=== PATIENT | female | born 1975 ===

== ENCOUNTER 2024-02-04 17:09 | Emergency (ER) | payer OTHER, SELFPAY ==
--- NOTE | ~2024-02-04 | US_ITS ---
EXAMINATION: US ABDOMEN LIMITED CLINICAL INFORMATION: Epigastric pain. COMPARISON: None available. TECHNIQUE: Real-time imaging of the right upper quadrant abdominal viscera. FINDINGS: PANCREAS: Normal. LIVER: Multiple simple appearing cysts largest in the left lobe measuring up to 2 cm. The liver is normal in size. The liver contour is normal. Parenchymal echogenicity is normal. There is no intrahepatic biliary duct dilatation seen. GALLBLADDER: Normal. The gallbladder is physiologically distended without evidence of stones, sludge, polyps, wall thickening or pericholecystic fluid. COMMON BILE DUCT: Normal in caliber measuring 0.3 cm in diameter. RIGHT KIDNEY: Normal. No hydronephrosis. No renal calculi or focal parenchymal lesions. The kidney measures 9.8 cm in maximum dimension. FREE FLUID: None. US/US abdomen limited IMPRESSION: No acute sonographic abnormalities to explain the patient's symptoms. Electronically signed by: Alia Soares MD 02/04/2024 07:30 PM EDT
--- NOTE | 2024-02-04 17:45 | ED_ITS ---
HPI - Abdominal Pain General Chief Complaint: Abdominal Pain Stated Complaint: abd pain Time Seen by Provider: 02/04/24 22:21 Source: patient Mode of arrival: ambulatory Limitations: no limitations History of Present Illness ED Provider: Dr. Helena Terrell HPI narrative: Patient comes to the emergency room complaining of 4-5 months of right upper quadrant pain. Patient states that it feels like a lot of pressure in her abdomen. Denies sharp pains, states that the pain is not related to p.o. intake. Patient denies hematuria or dysuria. Patient denies nausea vomiting or diarrhea. Denies any previous abdominal surgeries. - Related Data Previous Rx's ?Medication ?Instructions ?Recorded acetaminophen 500 mg capsule 500 mg PO Q6H PRN fever or pain 02/04/24 #20 caps hyoscyamine sulfate 0.125 mg tablet 0.125 mg PO QID PRN dyspepsia #10 02/04/24 tabs Allergies Allergy/AdvReac Type Severity Reaction Status Date / Time No Known Allergies Allergy Verified 02/04/24 17:50 Review of Systems Review of Systems Constitutional : No Weight loss, No Fever, No Chills, No Night Sweats, No Fatigue, No Malaise ENT/Mouth : No Hearing loss, No Ear Pain, No Nasal Congestion, No Sinus Pain, No Hoarseness, No sore throat, No Rhinorrhea, No Swallowing Difficulty Eyes: No Eye Pain, No Swelling, No Redness, No Foreign Body, No Discharge, No Vision Changes Cardiovascular : No Chest Pain, No SOB, No Dyspnea on Exertion, No Orthopnea, No Edema, No Palpitations Respiratory : No Cough, No Sputum, No Wheezing, No Smoke Exposure, No Dyspnea Gastrointestinal : No Nausea, No Vomiting, No Diarrhea, No Constipation, complaining of chronic right upper quadrant pain that started approximately 4-5 months ago. Genitourinary : no irregular bleeding, No Dysuria, No Urinary Frequency, No Hematuria, No Urinary Incontinence, No Urgency, No Flank Pain, No Urinary Flow Changes, No Hesitancy Musculoskeletal : No joint pain, No Myalgias, No Joint Swelling Skin : No Skin Lesions, No rash Neuro : No Weakness, No Numbness, No Paresthesias, No Loss of Consciousness, No Dizziness, No Headache Psych : No Anxiety/Panic, No Depression, No SI/HI/AH/VH, No Social Issues, Heme/Lymph: No Bruising, No Bleeding,No Lymphadenopathy Endocrine : No Polyuria, No Polydipsia, No Temperature Intolerance [facility] Social History Social History Advance Directives: No Advance Directives Information Provided: No Do you have a plan to hurt others: No Plan Physical Exam ED Vital Signs: Vital Signs - 24 hr 02/04/24 17:46 02/04/24 20:48 Temperature 98.9 F 98.1 F Pulse Rate 73 61 Respiratory Rate 20 16 Blood Pressure 118/54 L 105/62 Pulse Oximetry 100 100 Oxygen Delivery Method Room Air Room Air BMI result Body Mass Index 26.6 Const Other: Appearance: Alert. Oriented X3. No acute distress. Eyes: Pupils equal, round and reactive to light. ENT: Pharynx normal. Neck: Normal inspection. Neck supple. No lymph nodes noted. No crepitus CVS: Normal heart rate and rhythm. Pulses normal. Normal S1 and S2 Respiratory: No respiratory distress. Breath sounds normal. No Wheezing. No rales Abdomen: Soft , some tenderness to palpation over the right upper quadrant, negative Segura sign, no rebound or guarding Skin: Skin warm and dry. Normal skin color. Normal skin turgor. Extremities: No lower extremity edema. No Lacerations. No Rash Neuro: Oriented X 3. No motor deficit. No sensory deficit. Moving all extremities. No slurred speech. CN 2 through 12 grossly intact Psych: calm, cooperative, normal affect Course Course Course Narrative: This is an RME: Additional HPI, ROS, PE not included below will be deferred to primary provider. RME assessment and note performed by: Kayla Saldana PA-C This is a 66-picl-akl-female, with a hx of asthma, who presents to the ER with a complaint of abdominal pain x 4-5 months, progressively worsening. No nausea, vomiting, or diarrhea. She has no PCP. Plan: labs, US, UA, further ER eval needed Medical Decision Making Medical Decision Making MDM Narrative: My interpretation of labs, normal hematology, normal chemistry, normal LFTs, normal troponin, normal lipase, hCG negative -ultrasound of the abdomen shows multiple cysts in the left lobe measuring up to 2 cm. No intrahepatic biliary duct dilation. Gallbladder is physiologically distended without evidence of stones sludge or polyps. Current bile duct is normal in caliber. Her kidney within normal limits. -patient states that she does not have a PCP, recently arrived from [place] 2 weeks ago. -discussed with the patient that we will refer her to Gastroenterology. Besides, patient is 48 years old, she is due for a routine colonoscopy Differential Diagnosis Differential Diagnoses: The differential diagnosis associated with the presentation includes (Cholecystitis, pancreatitis, functional abdominal pain) Lab Data MDM Lab Attestation statement: I reviewed the patient's lab results. 02/04/24 18:03 02/04/24 18:03 Labs: Lab Results 02/04/24 Range/Units 18:03 WBC 6.3 (4.8-10.8) X10*3/uL RBC 3.99 L (4.20-5.50) X10*6/uL Hgb 12.0 (12.0-16.0) g/dl Hct 35.7 L (37.0-47.0) % MCV 89.5 (80.0-98.0) fL MCH 30.1 (27.0-33.0) pg MCHC 33.6 (31.0-35.0) g/dl RDW 13.8 (11.0-16.0) % Plt Count 344 (160-400) X10*3/uL MPV 9.5 (9.4-12.3) fL Immature Gran % (Auto) 0.5 H (0.0-0.4) % Neut % (Auto) 58.1 (45-73) % Lymph % (Auto) 31.5 (20-40) % [place] % (Auto) 8.4 (2-11) % Eos % (Auto) 1.0 (0-4) % Baso % (Auto) 0.5 (0-2) % Lymph # (Auto) 2.0 (1.2-4.9) X10*3/uL [place] # (Auto) 0.5 (0.1-1.2) X10*3/uL Eos # (Auto) 0.1 (0.0-0.4) X10*3/uL Baso # (Auto) 0.0 (0.0-0.2) X10*3/uL Abs Immat Gran (auto) 0.03 (0.00-0.03) X10*3/uL Absolute Neuts (auto) 3.7 (2.0-8.3) x10*3/uL Absolute Nucleated RBC 0.000 (0.0-0.012) X10*3/uL Nucleated RBC % (auto) 0.0 (0.0-0.2) /100WBC Hold Purple Top SEE NOTE Hold Blue Top SEE NOTE Sodium 142 (135-145) mmol/L Potassium 3.7 (3.3-5.1) mmol/L Chloride 111 H (96-108) mmol/L Carbon Dioxide 23 (22-29) mmol/L Anion Gap 12 (12-20) BUN 16 (9-16) mg/dL Creatinine 0.80 (0.5-1.4) mg/dL Estim Creat Clear Calc 87.0 Estimated GFR > 60 Random Glucose 96 (60-115) mg/dL Calcium 9.2 (8.4-10.2) mg/dL Total Bilirubin 0.4 (0.0-1.0) mg/dL Direct Bilirubin 0.1 (0.0-0.5) mg/dL AST 19 (5-31) U/L ALT 15 (0-31) U/L Alkaline Phosphatase 63 (39-117) U/L Troponin I High Sens < 2.7 (<3.5-17.0) ng/L Total Protein 7.1 (6.5-8.0) g/dL Albumin 4.2 (3.5-5.0) g/dL Lipase 34 (8-78) U/L Beta HCG, Quant < 2 mIU/mL Independent Interpretation I performed an independent interpretation of an: Ultrasound Radiology Impression Discussion of test interpretation with radiology: I have reviewed the radiologist's reading. Radiologist Impression: PANCREAS: Normal. LIVER: Multiple simple appearing cysts largest in the left lobe measuring up to 2 cm. The liver is normal in size. The liver contour is normal. Parenchymal echogenicity is normal. There is no intrahepatic biliary duct dilatation seen. GALLBLADDER: Normal. The gallbladder is physiologically distended without evidence of stones, sludge, polyps, wall thickening or pericholecystic fluid. COMMON BILE DUCT: Normal in caliber measuring 0.3 cm in diameter. RIGHT KIDNEY: Normal. No hydronephrosis. No renal calculi or focal parenchymal lesions. The kidney measures 9.8 cm in maximum dimension. FREE FLUID: None. US/US abdomen limited IMPRESSION: No acute sonographic abnormalities to explain the patient's symptoms. Discharge Plan Discharge Clinical Impression: Chronic abdominal pain Patient Disposition: Home, Self-Care Instructions: Chronic Abdominal Pain (ED) Additional Instructions: Please follow-up with your primary care physician tomorrow. If you have any worsening or new symptoms, please return to the emergency room or call 911 Prescriptions: New acetaminophen 500 mg capsule 500 mg PO Q6H PRN (Reason: fever or pain) Qty: 20 0RF hyoscyamine sulfate 0.125 mg tablet 0.125 mg PO QID PRN (Reason: dyspepsia) Qty: 10 0RF Referrals: Raiza Beaver MD [Physician] - 02/05/24 Print Language: Frisian
[2024-02-04 17:46] VITALS: BP 118/54; PULSE 73; RESP 20; TEMP 37.2; O2SAT 100; BMI 26.6
--- NOTE | 2024-02-04 17:51 | ECG_ITS ---
Test Reason : epigastric pain Blood Pressure : / mmHG Vent. Rate : 065 BPM Atrial Rate : 065 BPM P-R Int : 136 ms QRS Dur : 076 ms QT Int : 404 ms P-R-T Axes : 048 034 039 degrees QTc Int : 420 ms Normal sinus rhythm Normal ECG No previous ECGs available Referred By: Kayla Saldana Electronically Signed By:MIKA BA
[2024-02-04 18:09] LABS: MANUAL DIFF FLAG NO
[2024-02-04 18:11] LABS: Basophils Percent Auto 0.5 % (0-2); Eosinophils Absolute Auto 0.1 X10*3/uL (0.0-0.4); Hematocrit 35.7 % (37.0-47.0); Imm Gran Abs Auto 0.03 X10*3/uL (0.00-0.03); Imm Gran Pct Auto 0.5 % (0.0-0.4); Lymphocytes Percent Auto 31.5 % (20-40); Mean Corpuscular HGB Conc 33.6 g/dl (31.0-35.0); Mean Corpuscular Hemoglobin 30.1 pg (27.0-33.0); Mean Corpuscular Volume 89.5 fL (80.0-98.0); Mean Platelet Volume 9.5 fL (9.4-12.3); Monocytes Absolute Auto 0.5 X10*3/uL (0.1-1.2); Monocytes Percent Auto 8.4 % (2-11); Neutrophils Absolute Auto 3.7 x10*3/uL (2.0-8.3); Neutrophils Percent Auto 58.1 % (45-73); Platelet Count 344 X10*3/uL (160-400); Red Blood Count 3.99 X10*6/uL (4.20-5.50); Red Cell Distribution Width 13.8 % (11.0-16.0); White Blood Count 6.3 X10*3/uL (4.8-10.8)
[2024-02-04 18:30] LABS: Alanine Aminotransferase 15 U/L (0-31); Albumin Level 4.2 g/dL (3.5-5.0); Alkaline Phosphatase 63 U/L (39-117); Anion Gap 12 (12-20); Aspartate Amino Transferase 19 U/L (5-31); Bilirubin Direct 0.1 mg/dL (0.0-0.5); Bilirubin Total 0.4 mg/dL (0.0-1.0); Blood Urea Nitrogen 16 mg/dL (9-16); Calcium 9.2 mg/dL (8.4-10.2); Carbon Dioxide 23 mmol/L (22-29); Chloride 111 mmol/L (96-108); Estimated Glomerular Filt Rate > 60; Glucose Random 96 mg/dL (60-115); Lipase 34 U/L (8-78); Potassium 3.7 mmol/L (3.3-5.1); Sodium 142 mmol/L (135-145); Total Protein 7.1 g/dL (6.5-8.0)
[2024-02-04 18:31] LABS: HCG Quantitative < 2 mIU/mL
[2024-02-04 18:35] LABS: Troponin-I High Sensitivity < 2.7 ng/L (<3.5-17.0)
[2024-02-04 20:48] VITALS: BP 105/62; PULSE 61; RESP 16; TEMP 36.7; O2SAT 100
--- NOTE | 2024-02-04 20:50 | PC.NURSE ---
pt a&ox3, c/o 01/30 rt flank pain, vss, labs previously drawn, pt awaiting to be seen by provider
[2024-02-04 22:39] VITALS: BP 106/68; PULSE 58; RESP 16; TEMP 36.4; O2SAT 100
[2024-02-04 23:09] VITALS: BP 106/68; PULSE 58; RESP 16; TEMP 36.4; O2SAT 100
== END 2024-02-04 23:09 | disposition home or self-care (01) ==
PROVIDERS: Physician Assistant Medical; Emergency Provider Emergency Medicine
DX: R10.11 Right upper quadrant pain (principal); R10.13 Epigastric pain; Z79.899 Other long term (current) drug therapy
CPT/HCPCS: 36415; 76705; 80048; 80076; 83690; 84484; 84702; 85025; 93005; 99284

== ENCOUNTER → 2024-02-04 17:51 | Outpatient (BNV) | payer OTHER, SELFPAY | PROVIDERS: Emergency Provider Emergency Medicine; Visit Provider Internal Medicine | DX: R10.13 Epigastric pain (principal) | CPT/HCPCS: 93010 ==

== ENCOUNTER 2024-03-31 12:37 | Outpatient (AMB) | payer OTHER, SELFPAY ==
--- NOTE | 2024-03-31 12:48 | MHC.OFFVIS ---
Vital Signs 03/31/24 12:51 Height 5 ft 6 in Weight 154 lb 5.177 oz BMI 24.9 BP 109/58 L Blood Pressure Location Lt brachial Position Sitting Pulse 80 Intake Visit Reasons: abdominal pain Intake Note: Griffin presents in the office as a new patient for abdominal pains. CC: RUQ pains, no irregular bowel movements, sometimes acid reflux. Product Delivery Specialist Required: Yes Product Delivery Specialist Name: [id number] [place] Allergies No Known Allergies Allergy (Verified 03/31/24 12:55) HPI Comments Details: 48 y.o F with PMH of who is here for chronic abd pain. Reports 4-5 months of RUQ pain which is assoc with loss of appetite without any N,V,D. Pain comes and goes. Not present all the time roughly there 50% of the time. Pain is there when she wakes up but aggravated by eating. Gets better with taking tylenol or motrin. BMs are soft and the pain is unchanged with defecation. Was seen in ER in Jan for the same LFTs and US normal. No fam hx of liver disease Limited etOH. Smokes 3-5 cigarettes. Never had colo. Review of Systems Const All systems reviewed & are unremarkable except as noted in HPI and below Physical Exam Vital Signs: Last Vital Signs Pulse 80 03/31/24 12:51 BP 109/58 L 03/31/24 12:51 BMI result Body Mass Index 24.9 No apparent distress Nonicteric Abdomen soft, nondistended, with pin point localized tenderness 2 cm above umbilicsus. Alert and oriented x3, normal gait GI Abdomen image: 1. pinpoint reproducible tenderness Office Procedures Injection Trigger Point Multi Site was marked and prepped with alcohol wipe. While lightly pinching the skin, a 25g 1.5inch needle was inserted perpendicularly. 2ml of 1% lidocaine was injected at the site to confirm appropriate location and for local anesthesia. This was then followed with 1ml of Triamcinolone (40mg). Minimal bleeding was noted at the end of procedure. A band aid was applied. 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 Other ddx include biliary diskinesia, SOD, celiac. Low suspicion for PUD givenlocation and no relation to food. Plan: - Trigger point inj today - Can repeat this as needed, if this does resolve the pain - HIDA and labs ordered as below - Pt also requests chronic hep screening which as been ordered as per CDC guidance - Has never had CRC screening. [place] to be booked on elective basis. PEG prep given and instructions reviewed. Can add EGD if develops bowel habits changes or pos celiac serology. Follow up after colo Orders: Orders NM hepatobiliary w pharm 03/31/24 R10.11 - Right upper quadrant pain, G89.29 - Other chronic pain Transglutaminase IgA 03/31/24 R10.11 - Right upper quadrant pain, G89.29 - Other chronic pain Hepatitis A IgG 03/31/24 Z11.59 - Encounter for screening for other viral diseases Hepatitis B Core Antibody 03/31/24 Z11.59 - Encounter for screening for other viral diseases Hepatitis B Surface Antigen 03/31/24 Z11.59 - Encounter for screening for other viral diseases Hepatitis C Antibody 03/31/24 Z11.59 - Encounter for screening for other viral diseases TSH reflex Free T4 03/31/24 R10.11 - Right upper quadrant pain, G89.29 - Other chronic pain Immunoglobulin A 03/31/24 R10.11 - Right upper quadrant pain, G89.29 - Other chronic pain Hepatitis B Surface Antibody 03/31/24 Z11.59 - Encounter for screening for other viral diseases Medications: New peg 3350-electrolytes 236-22.74-6.74 -5.86 gram (Golytely) as per split prep instructions, until fecal effluent is clear 240 mL PO Q10M 4,000 mL 0RF colonoscopy Coding Level of Care Code New Pt Level 4 (52836) Diagnoses 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
[2024-03-31 12:51] VITALS: BP 109/58; PULSE 80; BMI 24.9
== END 2024-03-31 14:48 | disposition home or self-care (01) ==
PROVIDERS: Visit Provider Internal Medicine
DX: R10.11 Right upper quadrant pain (principal); G58.8 Other specified mononeuropathies; Z11.59 Encounter for screening for other viral diseases
CPT/HCPCS: 99204

== ENCOUNTER 2024-03-31 12:37 | Outpatient (REF) | payer OTHER, SELFPAY ==
[2024-03-31 15:20] LABS: TSH reflex Free T4 1.71 uIU/mL (0.32-4.0)
[2024-04-01 08:27] LABS: HBc Num1 0.04 S/CO (0.00-0.79); HBsAGNum1 0.45 S/CO (0.00-0.99); Hepatitis A Antibody IgG Nonreactive (Nonreactive); Hepatitis B Core Antibody Nonreactive (Nonreactive); Hepatitis B Surface Antigen Negative (Negative); ~HepC Num1 0.09 S/CO (0.00-0.79); ~Hepatitis A Antibody IgG 0.23 S/CO (0.00-0.99); ~Hepatitis B Surface Antibody NONREACTIVE (Nonreactive); ~Hepatitis C Antibody Nonreactive (Nonreactive)
[2024-04-01 10:48] LABS: Immunoglobulin A 212 mg/dL (47-310)
[2024-04-01 20:39] LABS: Transglutaminase IgA <1.0 U/mL
--- OUTSIDE RECORDS SUMMARY | 2024-04-02 16:01 | XMS_ITS | Continuity of Care Document ---
Author Organization [facility] Address [address] [place] [address] Phone Care Team Providers Care Sales/Marketing Name Role Phone Marlene Tim Unavailable Unava ilable Allergies, Adverse Reactions, Alerts Substance Reaction Status Criticality No Known Allergies Active No Inform ation Procedures Procedure Date OFFICE/OUTPATIENT VISIT, [facility] Advance Directives Directive Yes / No Effective Date File Name No Information Encounters Encounter Description Practice Location Reason(s) For Visit Diagnoses Date Provider Providers Copied on Encounter OFFICE/OUTPAT IENT VISIT, [facility], [address] [place], , [id number], [place] tel:[phone] [facility] [place] [facility] Sebaceous cyst Nick Rosario. [address] [facility], [place], , [id number], [place]. tel:[phone] Family History Family Member Type Diagnosis Age [...] Mental Status Date Cognitive Assessment Orientation - [place] ed to time, place, person, situation. Patient Care Teams Name Effective Dates (start - stop) Status Members No Information
== END 2024-03-31 12:38 | disposition home or self-care (01) ==
LOC: HO.LAB 12:37
PROVIDERS: Visit Provider Internal Medicine
DX: Z11.59 Encounter for screening for other viral diseases (principal); R10.11 Right upper quadrant pain; G89.29 Other chronic pain
CPT/HCPCS: 36415; 82784; 84443; 86364; 86704; 86706; 86708; 86803; 87340

== ENCOUNTER → 2024-05-02 10:41 | Outpatient (REF) | payer OTHER, SELFPAY ==
--- NOTE | ~2024-05-02 | NM_ITS ---
EXAMINATION: NM BILIARY TRACT CLINICAL INFORMATION: Right upper quadrant pain. COMPARISON: Ultrasound abdomen 02/04/2024 TECHNIQUE: Following intravenous administration of 5 mCi of 90 9M technetium mebrofenin, imaging over the right upper quadrant was obtained up to 54 minutes. At 75 minutes 1.5 micrograms of CCK was injected and further imaging was obtained up to 30 minutes. FINDINGS: There is normal hepatic uptake without focal defect. CBD is visualized by 10 minutes. Small bowel is visualized by 10 minutes. Post-CCK the gallbladder ejection fraction at 10 minutes is 7%, at 20 minutes is 25% and at 30 minutes is 76%. 7 minutes NM/NM hepatobiliary w pharm IMPRESSION: Patent cystic duct. Patent CBD. Normal hepatic uptake. Normal gallbladder ejection fraction 76% at 30 minutes. Electronically signed by: Nithin Baldwin MD 05/02/2024 03:58 PM [facility]
--- OUTSIDE RECORDS SUMMARY | 2024-05-02 10:51 | XMS_ITS | Continuity of Care Document ---
Author Organization [facility] Address [address] [place] [phone] Phone Care Team Providers Care Winch Driver Name Role Phone Marlene Tim Unavailable Unava ilable Allergies, Adverse Reactions, Alerts Substance Reaction Status Criticality No Known Allergies Active No Inform ation Procedures Procedure Date OFFICE/OUTPATIENT VISIT, [facility] Advance Directives Directive Yes / No Effective Date File Name No Information Encounters Encounter Description Practice Location Reason(s) For Visit Diagnoses Date Provider Providers Copied on Encounter OFFICE/OUTPAT IENT VISIT, [facility], [address] [place], , [id number], [place] tel:[phone] [facility] [place] [facility] Sebaceous cyst Nick Rosario. [address] [facility], [place], , [id number], [place]. tel:[phone] Family History Family Member Type Diagnosis Age At Onset Problem (finding) Family history of hyper tension Problem (finding) Family history of Diabe sandoval mellitus Payers Payer name Insurance type Covered democrat ID Authoriza tion(s) No Information Social History [...] Mental Status Date Cognitive Assessment Orientation - [place] ed to time, place, person, situation. Patient Care Teams Name Effective Dates (start - stop) Status Members No Information
== END ==
LOC: HO.NUCMED 10:41
PROVIDERS: Visit Provider Internal Medicine
DX: R10.11 Right upper quadrant pain (principal); G89.29 Other chronic pain
CPT/HCPCS: 78227; A9537; J2805

== ENCOUNTER → 2024-05-02 10:42 | Outpatient (BNV) | payer OTHER, SELFPAY | PROVIDERS: Visit Provider Radiology Diagnostic Radiology | DX: R10.11 Right upper quadrant pain (principal) | CPT/HCPCS: 78227 ==

== ENCOUNTER 2024-08-06 17:21 | Emergency (ER) | payer MEDICAID, SELFPAY ==
--- NOTE | ~2024-08-06 | XR_ITS ---
CLINICAL HISTORY: SOB 2 view chest x-ray Comparison: None Findings: No consolidation or effusion. Normal size heart. No acute fracture. IMPRESSION: 1. No acute findings. This document has been electronically signed by: Vikki Bowden MD on 08/06/2024 18:26:05
--- NOTE | 2024-08-06 17:25 | ECG_ITS ---
Test Reason : CHEST PAIN Blood Pressure : */* mmHG Vent. Rate : 73 BPM Atrial Rate : 73 BPM P-R Int : 124 ms QRS Dur : 80 ms QT Int : 402 ms P-R-T Axes : 36 35 45 degrees QTcB Int : 442 ms Normal sinus rhythm Normal ECG When compared with ECG of 04-Feb-2024 17:52, No significant change was found Referred By: Generic ED Physician Electronically Signed By: JOHN BERMAN MD
[2024-08-06 17:37] VITALS: BP 123/60; PULSE 67; RESP 18; TEMP 36.7; O2SAT 100; BMI 32.8
--- NOTE | 2024-08-06 17:40 | ED_ITS ---
HPI - SOB/Dyspnea General Chief Complaint: Chest Pain Stated Complaint: chest pain Time Seen by Provider: 08/06/24 18:18 Source: patient Limitations: no limitations History of Present Illness ED Provider: Amy Clark PA-C HPI Narrative: 49-year-old female with a history of asthma presents with worsening shortness of breath over the past 2 weeks. Patient states she has been having to use her home albuterol more frequently. Associated chest tightness, dry repetitive bronchospasm type cough. Denies fever. Related Data Previous Rx's ?Medication ?Instructions ?Recorded acetaminophen 500 mg capsule 500 mg PO Q6H PRN fever or pain 02/04/24 #20 caps peg 3350-electrolytes 236 240 ml PO Q10M colonoscopy #4,000 03/31/24 gram-22.74 gram-6.74 gram-5.86 mL gram solution (Golytely) albuterol sulfate 2.5 mg/3 mL 2.5 mg (3 mL) inhalation Q4-6H PRN 08/06/24 (0.083 %) solution for nebulization shortness of breath or wheezing #75 mL prednisone 20 mg tablet 40 mg (2 x 20 mg) PO DAILY #8 tabs 08/06/24 Allergies Allergy/AdvReac Type Severity Reaction Status Date / Time No Known Allergies Allergy Verified 08/12/24 14:46 Review of Systems 2 Review of Systems: Yes all other systems are reviewed and are negative Constitutional: Constitutional: Denies fatigue and Denies fever(s) Cardiovascular: Cardiovascular: Reports chest pain and Reports dyspnea Respiratory: Respiratory: Reports cough, Reports dyspnea and Reports wheezing Gastrointestinal: Gastrointestinal: Denies nausea and Denies vomiting Endocrine: Endocrine: Denies fatigue Allergic/Immunologic: Allergic/Immunologic: Reports wheezing PMFSH Past Medical History Attestation statement: The following information was validated with the patient. Social History Social History Unable to assess alcohol history related to: Unknown Smoked in Last 30 Days: No Use of substances other than those prescribed or required for medical reasons: No Advance Directives: No Advance Directives Information Provided: No Do you have a plan to hurt others: No Plan Patient : No Physical Exam 2 Vital Signs: Vital Signs: Last Vital Signs Temp 97.3 F 08/06/24 22:21 Pulse 73 08/06/24 22:21 Resp 16 08/06/24 22:21 BP 103/52 L 08/06/24 22:21 Pulse Ox 100 08/06/24 22:21 O2 Del Method Room Air 08/06/24 22:21 BMI result Body Mass Index 32.8 Const: Other: Alert well-appearing Orientation/consciousness: patient oriented x3 Resp: Other: Nonlabored respirations, faint occasional expiratory wheeze Cardio: Other: Normal peripheral perfusion Skin: Other: Warm dry no rash Neuro: General: patient oriented x3, gait normal, no focal motor deficits and CN's II-XI intact bilaterally Psych: Other: Cooperative Course Course Course Narrative: This is an RME: Additional HPI, ROS, PE not included below will be deferred to primary provider. RME assessment and note performed by: Kayla Mccurdy PA-C This is a 63-[id number]-xbk-female who presents to the ER with concerns for shortness of breath for the last two weeks. Reports that she has been using an albuterol inhaler but symptoms have not improved. Plan: Labs, EKG, chest x-ray Medications Administered Discontinued Medications Generic Name Dose Route Start Last Admin Trade Name Freq PRN Reason Stop Dose Admin Albuterol Sulfate 2.5 mg 08/06/24 20:40 08/06/24 20:41 Albuterol Sulfate (0.083%) 2.5 Mg/3 Ml Vial.Neb INHALE 08/06/24 20:41 2.5 mg ONCE ONE Administration Prednisone 40 mg 08/06/24 20:26 08/06/24 20:48 Prednisone 20 Mg Tablet PO 08/06/24 20:27 40 mg ONCE ONE Administration Medical Decision Making Medical Decision Making [facility] Narrative: 49-year-old female with a history of asthma presents with worsening shortness of breath over the past 2 weeks. Patient states she has been having to use her home albuterol more frequently. Associated chest tightness, dry repetitive bronchospasm type cough. Denies fever. Problem: Asthma History: Per patient I have considered the following differential diagnoses: Asthma exacerbation, bronchitis, pneumonia, viral syndrome, ACS Plan: Patient here with mild symptoms of asthma exacerbation. Screening labs including a viral panel and chest x-ray were obtained. We will give albuterol and steroid. ACS was considered given concurrent chest tightness, although the patient has no risk factors for coronary artery disease. Troponin and EKG were obtained. I have independently reviewed the following tests: Labs: Slight leukocytosis, not anemic, no electrolyte abnormality, troponin negative, viral panel negative EKG: Normal sinus rhythm, rate of 73, no ischemic changes no ectopy Chest x-ray:Findings: No consolidation or effusion. Normal size heart. No acute fracture. IMPRESSION: 1. No acute findings. Lab Data 08/06/24 17:55 08/06/24 17:55 Labs: Lab Results 08/06/24 Range/Units 17:55 WBC 12.4 H (4.8-10.8) X10*3/uL RBC 4.21 (4.20-5.50) X10*6/uL Hgb 12.5 (12.0-16.0) g/dl Hct 37.5 (37.0-47.0) % MCV 89.1 (80.0-98.0) fL MCH 29.7 (27.0-33.0) pg MCHC 33.3 (31.0-35.0) g/dl RDW 13.8 (11.0-16.0) % Plt Count 336 (160-400) X10*3/uL MPV 10.0 (9.4-12.3) fL Immature Gran % (Auto) 0.3 (0.0-0.4) % Neut % (Auto) 70.6 (45-73) % Lymph % (Auto) 21.1 (20-40) % Waldo % (Auto) 7.6 (2-11) % Eos % (Auto) 0.2 (0-4) % Baso % (Auto) 0.2 (0-2) % Lymph # (Auto) 2.6 (1.2-4.9) X10*3/uL Waldo # (Auto) 0.9 (0.1-1.2) X10*3/uL Eos # (Auto) 0.0 (0.0-0.4) X10*3/uL Baso # (Auto) 0.0 (0.0-0.2) X10*3/uL Abs Immat Gran (auto) 0.04 H (0.00-0.03) X10*3/uL Absolute Neuts (auto) 8.7 H (2.0-8.3) x10*3/uL Absolute Nucleated RBC 0.000 (0.0-0.012) X10*3/uL Nucleated RBC % (auto) 0.0 (0.0-0.2) /100WBC Sodium 139 (135-145) mmol/L Potassium 4.0 (3.3-5.1) mmol/L Chloride 110 H (96-108) mmol/L Carbon Dioxide 19 L (22-29) mmol/L Anion Gap 14 (12-20) BUN 23 H (9-16) mg/dL Creatinine 1.02 (0.5-1.4) mg/dL Estim Creat Clear Calc 62.0 Estimated GFR 57 Random Glucose 90 (60-115) mg/dL Calcium 9.8 D (8.4-10.2) mg/dL Magnesium 2.1 (1.6-2.6) mg/dL Total Bilirubin 0.3 (0.0-1.0) mg/dL Direct Bilirubin 0.1 (0.0-0.5) mg/dL AST 20 (5-31) U/L ALT 18 (0-31) U/L Alkaline Phosphatase 59 (39-117) U/L Troponin I High Sens < 2.7 (<3.5-17.0) ng/L Total Protein 7.6 (6.5-8.0) g/dL Albumin 4.4 (3.5-5.0) g/dL Influenza Type A (PCR) NEGATIVE (Negative) Influenza Type B (PCR) NEGATIVE (Negative) RSV RNA Qual (PCR) NEGATIVE (Negative) SARS-CoV-2 RNA (RT-PCR) NEGATIVE (Negative) Discharge Plan Discharge Clinical Impression: Asthma exacerbation Patient Disposition: Home, Self-Care Instructions: Asthma (ED) Additional Instructions: You are being treated for an asthma exacerbation. See home care instructions. Use your home nebulizer treatments as directed, take the steroid as directed. Follow up with your primary care provider as needed. All of your screening labs were normal, the chest x-ray is clear. Prescriptions: New albuterol sulfate 2.5 mg /3 mL (0.083 %) solution for nebulization 2.5 mg inhalation Q4-6H PRN (Reason: shortness of breath or wheezing) Qty: 75 0RF prednisone 20 mg tablet 40 mg PO DAILY Qty: 8 0RF No Action acetaminophen 500 mg capsule 500 mg PO Q6H PRN (Reason: fever or pain) Qty: 20 0RF peg 3350-electrolytes [Golytely] 236-22.74-6.74 -5.86 gram recon soln 240 ml PO Q10M Qty: 4000 0RF Rx Instructions: as per split prep instructions, until fecal effluent is clear Stand Alone Forms: Work/School Release Interventions: ED Discharge Assessment Last Done: 08/06/24 22:21 Discharge Date/Time: 08/06/24 22:23 Print Language: Syrian
[2024-08-06 17:58] LABS: MANUAL DIFF FLAG NO
[2024-08-06 18:00] LABS: Basophils Percent Auto 0.2 % (0-2); Eosinophils Percent Auto 0.2 % (0-4); Hematocrit 37.5 % (37.0-47.0); Hemoglobin 12.5 g/dl (12.0-16.0); Imm Gran Abs Auto 0.04 X10*3/uL (0.00-0.03); Imm Gran Pct Auto 0.3 % (0.0-0.4); Lymphocytes Absolute Auto 2.6 X10*3/uL (1.2-4.9); Lymphocytes Percent Auto 21.1 % (20-40); Mean Corpuscular HGB Conc 33.3 g/dl (31.0-35.0); Mean Corpuscular Hemoglobin 29.7 pg (27.0-33.0); Mean Corpuscular Volume 89.1 fL (80.0-98.0); Monocytes Absolute Auto 0.9 X10*3/uL (0.1-1.2); Monocytes Percent Auto 7.6 % (2-11); Neutrophils Absolute Auto 8.7 x10*3/uL (2.0-8.3); Neutrophils Percent Auto 70.6 % (45-73); Platelet Count 336 X10*3/uL (160-400); Red Blood Count 4.21 X10*6/uL (4.20-5.50); Red Cell Distribution Width 13.8 % (11.0-16.0); White Blood Count 12.4 X10*3/uL (4.8-10.8)
[2024-08-06 18:15] VITALS: BP 110/59; PULSE 64; RESP 14; O2SAT 100
[2024-08-06 18:15] LABS: Alanine Aminotransferase 18 U/L (0-31); Albumin Level 4.4 g/dL (3.5-5.0); Alkaline Phosphatase 59 U/L (39-117); Anion Gap 14 (12-20); Aspartate Amino Transferase 20 U/L (5-31); Bilirubin Direct 0.1 mg/dL (0.0-0.5); Bilirubin Total 0.3 mg/dL (0.0-1.0); Blood Urea Nitrogen 23 mg/dL (9-16); Calcium 9.8 mg/dL (8.4-10.2); Carbon Dioxide 19 mmol/L (22-29); Chloride 110 mmol/L (96-108); Estimated Glomerular Filt Rate 57; Glucose Random 90 mg/dL (60-115); Magnesium 2.1 mg/dL (1.6-2.6); Sodium 139 mmol/L (135-145); Total Protein 7.6 g/dL (6.5-8.0)
[2024-08-06 18:23] LABS: Troponin-I High Sensitivity < 2.7 ng/L (<3.5-17.0)
--- OUTSIDE RECORDS SUMMARY | 2024-08-06 18:31 | XMS_ITS | Continuity of Care Document ---
Author Organization [facility] Address [address] [place] [address] Phone Care Team Providers Care Cultural Anthropology Professor Name Role Phone Marlene Tim Unavailable Unava ilable Allergies, Adverse Reactions, Alerts Substance Reaction Status Criticality No Known Allergies Active No Inform ation Procedures Procedure Date OFFICE/OUTPATIENT VISIT, [facility] Advance Directives Directive Yes / No Effective Date File Name No Information Encounters Encounter Description Practice Location Reason(s) For Visit Diagnoses Date Provider Providers Copied on Encounter OFFICE/OUTPAT IENT VISIT, [facility], [address] [place], , [id number], [place] tel:[phone] [facility] [place] [facility] Sebaceous cyst Nick Rosario. [address] [facility], [place], , [id number], [place]. tel:[phone] Family History Family Member Type Diagnosis Age At Onset Problem (finding) Family history of hyper tension Problem (finding) Family history of Diabe sandoval mellitus Payers Payer name Insurance type Covered republican ID Authoriza tion(s) No Information Social History [...] Mental Status Date Cognitive Assessment Orientation - [place] ed to time, place, person, situation. Patient Care Teams Name Effective Dates (start - stop) Status Members No Information
--- OUTSIDE RECORDS SUMMARY | 2024-08-06 18:31 | XMS_ITS | Clinical Summary ---
Author Organization [facility] [address] [place] [address] [place] [phone] Phone Care Team Providers Care Building Superintendent Name Role Phone Delon Rodarte MD Primary Care Provider Allergies No known active allergies Medications nicotine (NICODERM CQ) 14 mg/[address] 1 patch on the skin 1 (one) time each day at the same time. 42 each 4 Active nicotine (NICODERM CQ) 7 mg/[address] 1 patch on the skin 1 (one) time each day at the same time for 14 days. After completing 14 mg x 6 weeks 14 each 4 Active albuterol HFA (ProAir HFA) 90 mcg/actuation inhalerIndication s:Mild intermittent asthma without complication Inhale 2 puffs by mouth every 4 (four) hours if needed for wheezing or shortness of breath. 8.5 g 4 Active sod picosulf-mag ox-citric ac (Clenpiq) 10 mg-3.5 gram- 12 gram/175 mL solutionIndicatio ns:Colon cancer screening Take 175 mL by mouth 2 (two) times a day. 350 mL 5 Active Active Problems Problem Noted Date Diagnosed Date Mixed hyperlipidemia 04/11/2024 Tobacco use disorder 04/11/2024 Mild intermittent asthma without complication Prediabetes 04/11/2024 Tattoo of skin 08/01/2013 Anxiety disorder 06/20/2013 Bipolar disorder (CMS/HCC V24, CMS/HCC V28) 05/25 Insomnia 06/20/2013 Immunizations Name Administration Dates Next Due Influenza trivalent, MDCK, 0 .5mL, preservative free (Flucelvax) 6mo and older 04/29/2024 Pneumococcal conjugate 20 va lent (Prevnar 20, PCV 20) 2mo and older 04/29/2024 Tdap Tetanus diptheria acell ular pertussis (Boostrix; Adacel) 7yo and older 04/11/2024,08/01/2013 Surgical History Surgery Date Site/Laterality Comments TUBAL LIGATION SHOULDER SURGERY 04/23/2021 - 04/22/2022 Left Medical History Medical History Date Comments Bipolar disorder ([facility] V24, [facility] V28) Anxiety disorder Insomnia Tobacco use Family History Medical History Relation Name Comments Diabetes Father HTN No Known Problems Maternal Grandfather ESRD Maternal Grandmother No Known Problems Mother killed, an emia No Known Problems Paternal Grandfather No Known Problems Paternal Grandmother ne urological condition? No Known Problems Sister Relation Name Status Comments Daughter 1 Alive Daughter 2 Alive Daughter 3 Alive Father Maternal Grandfather Maternal Grandmother Mother Paternal Grandfather Paternal Grandmother Sister Alive Social History Tobacco Use Types Packs/Day Years Used Date Smoking Tobacco: Every Day Cigarettes Tobacco Cessation:Ready to Q uit: Not Asked; Counseling Given: Not Answered Comments:03/2024: 3-5 cigs/day Alcohol Use Standard Drinks/Week Comments Yes 0 (1 standard drink = 0.6 oz pure alcohol) twice a month, 3-5 beers/sitting Housing Instability Answer Date Recorde d Are you worried that in the next 2 months you may not have stable housing? No 04/11/2024 Food Access & Nutrition Answer Date Rec orded Do you have access to a vari ety of food including fruits and vegetables? Yes 04/11/2024 Access to Healthcare Answer Date Record ed Within the last 3 months, ho w many times did you visit the emergency department for your medical care? 0 04/11/2024 Health Literacy Answer Date Recorded How often do you need to hav e someone help you when you read instructions, pamphlets, or other written material from your doctor or pharmacy? Never 04/11/2024 Caregiver: How often do you need to have someone help you when you read instructions, pamphlets, or other written material from your doctor or pharmacy? Not on file 04/11/2024 Financial Risk Answer Date Recorded How hard is it for you to pa y for the very basics like food, housing, medical care, and air conditioning / heating? Not very hard 04/11/2024 Transportation Answer Date Recorded Has the lack of transportati on kept you from meetings, work, or from getting things needed for daily living? No Has the lack of transportati on kept you from medical appointments or from getting medications? No 04/11/2024 Social Isolation Answer Date Recorded How often do you feel lonely or isolated from th ose around you? Never 04/11/2024 Food Risk Answer Date Recorded Within the past 12 months we worried whether our food would run out before we got money to buy more. Never true 04/11/2024 Within the past 12 months th e food we bought just didn't last and we didn't have money to get more. Never true 04/11/2024 Dependent Care Answer Date Recorded Do you need help finding or paying for care for your loved ones. For example, child care centre director or elderly care for an older adult? No 04/11/2024 Education Answer Date Recorded Do you think completing more education or training, like finishing a GED, going to college, or learning a trade, would be helpful for you? No 04/11/2024 Employment and Income Answer Date Recor ded During the last four weeks, have you been actively looking for work? No 04/11/2024 Living Situation Answer Date Recorded What is your living situation? 1 06/12/2023 Comments Unknown Sex and Gender Information Value Date Recorded Sex Assigned at Not on file Legal Sex Female 4:36 AM EST Gender Identity Not on file Sexual Orientation Not on file Occupation Industry Job Start Date Job End Date works at [employer] Not on file Not on file Not on file Obstetrics History Last Filed Vital Signs Vital Sign Reading Time Taken Comments Blood Pressure 110/68 04/29/2024 9:21 AM EST Pulse 58 04/29/2024 9:21 AM EST Temperature 36.6 ??C (97.8 ??F) 04/29/2024 9:21 AM ES T Respiratory Rate 12 04/29/2024 9:21 AM EST Oxygen Saturation 98% 04/29/2024 9:21 AM EST Inhaled Oxygen Concentration - - Weight 73.9 kg (163 lb) 04/29/2024 9:21 AM EST Height 154.9 cm (5' 1 ) 04/29/2024 9:21 AM EST Body Mass Index 30.8 04/29/2024 9:21 AM EST Plan of Treatment Upcoming Encounters Date Type Department Care Team (Late st Contact Info) Description 10/27/2024 9:30 AM EDT Office Visit Adult Medicine [facility] [address] [place] [address] Delon Rodarte MD [address] [place] [address] Health Maintenance Due Date Last Done Comments Hepatitis B Vaccines (1 of 3 - 19+ 3-dose series) 1992 Breast Cancer Screening 09/18/2016 09/18/2014 Cervical Cancer Screening: P ap Smear 08/11/2017 08/11/2014, 08/11/2014 Zoster Vaccines (1 of 2) 07/30/2023 COVID-19 Vaccine (2023-2 5 season) 2023 Colorectal Cancer Screening: Colonoscopy 02/16/2024 Depression Screening 04/11/2025 04/11/2024 Social Influencers of Health Screening 04/11/2025 04/11/2024 Cholesterol Screening (Lipid Panel) 04/11/2029 04/11/2024, 08/01/2013 DTaP,Tdap,and Td Vaccines (3 - Td or Tdap) 04/11/2034 04/11/2024, 08/01/2013 HIV Screening Completed 04/11/2024, 08/11/2014 Hepatitis C Screening Completed 04/11/2024 , 08/01/2013 Influenza Vaccine Completed 04/29/2024 Pneumococcal Vaccine: 50+ Years Completed 04/29/2024 Pneumococcal Vaccine: Pediatrics (0 to 5 Years) and At-Risk Patients (6 to 64 Years) Completed 04/29/2024 HIB Vaccines Aged Out No longer eligi ble based on patient's age to complete this topic HPV Vaccines Aged Out No longer eligi ble based on patient's age to complete this topic Hepatitis A Vaccines Aged Out No long er eligible based on patient's age to complete this topic IPV Vaccines Aged Out No longer eligi ble based on patient's age to complete this topic MMR Vaccines Aged Out No longer eligi ble based on patient's age to complete this topic Meningococcal ACWY Vaccine Aged Out N o longer eligible based on patient's age to complete this topic Meningococcal B Vaccine Aged Out No l onger eligible based on patient's age to complete this topic RSV Immunization Patients Under 20 months Aged Out No longer eligible b ased on patient's age to complete this topic Varicella Vaccines Aged Out No longer eligible based on patient's age to complete this topic Procedures Procedure Name Priority Date/Time Associated Diagnosis Comments HEPATITIS PANEL, ACUTE WITH REFLEX TO CONFIRMATION Routine 04/11/2024 9:23 AM EST Screening examination for STD (sexually transmitted disease) HIV 1, 2 ANTIBODY, P24 ANTIGEN WITH REFLEX TO DIFFERENTIATION Routine 04/11/2024 9:23 AM EST Screening examination for STD (sexually transmitted disease) LIPID PANEL WITH REFLEX TO DIRECT LDL Routine 04/11/2024 9:23 AM EST Mixed hyperlipidemia HM HPV Routine 08/11/2014 from Last 3 Months or Most Recently Relevant to Health Maintenance Results * HIV 1,2 antibody, p24 antigen with reflex to differentiation (04/11/2024 9:23 AM EST) HIV Combo AB/AG Negative Negative LAB CHEMISTRY METHOD 04/11/2024 1:55 PM EST [facility] Blood Venous blood specimen / Unknown Venipuncture / Unknown 04/11/2024 9:23 AM EST 04/11/2024 9:23 AM EST Narrative [facility] - 04/11/2024 1:55 PM EST This assay is a 4th generation assay allowing for earlier detection of HIV infection by detecting the presence of the HIV-1 p24 antigen as well as the traditional antibodies to HIV type 1 (including group O) and type 2. ??Use of a 4th generation assay is the current CDC recommendation for HIV screening. us Carmenza Jimmy LORENZO LAB BLOOD ORDERABLES Final Resul t [facility] [address] [place] [address], [place] [phone] * (ABNORMAL) Lipid panel with reflex to direct LDL (04/11/2024 9:23 AM EST) Cholesterol 238(H) 0 - 200 mg/dL LAB CHEMISTRY METHOD 04/11/2024 1:27 PM EST [facility] Triglycerides 78 0 - 150 mg/dL LAB CHEMISTRY METHOD 04/11/2024 1:[address] [facility] HDL 84 >=40 mg/dL LAB CHEMISTRY METHOD 04/11/2024 1:[address] [facility] LDL Calculated 138(H) 0 - 100 mg/dL LAB CHEMISTRY METHOD 04/11/2024 1:[address] [facility] VLDL Cholesterol Corey 15.6 mg/dL LAB CHEMISTRY METHOD 04/11/2024 1:[address] [facility] Non HDL Chol. (LDL+VLDL) 154(H) <145 mg/dL LAB CHEMISTRY METHOD 04/11/2024 1:27 PM EST [facility] Chol/HDL Ratio 2.8 0.0 - 4.4 LAB CHEMISTRY METHOD 04/11/2024 1:[address] [facility] Blood Venous blood specimen / Unknown Venipuncture / Unknown 04/11/2024 9:23 AM EST 04/11/2024 9:23 AM EST us Carmenza Jimmy LORENZO LAB BLOOD ORDERABLES Final Resul t [facility] [address] [place] [address], [place] [phone] * Hepatitis panel, acute with reflex to confirmation (04/11/2024 9:23 AM EST) Hepatitis B Surface Ag Negative Negative LAB CHEMISTRY METHOD 04/11/2024 2:02 PM EST [facility] Hepatitis A Antibody IgM Negative Negative LAB CHEMISTRY METHOD 04/11/2024 2:02 PM EST [facility] Hep B Core IgM Negative Negative LAB CHEMISTRY METHOD 04/11/2024 2:02 PM EST [facility] Hepatitis C Antibody Negative Negative LAB CHEMISTRY METHOD 04/11/2024 2:02 PM EST [facility] Blood Venous blood specimen / Unknown Venipuncture / Unknown 04/11/2024 9:23 AM EST 04/11/2024 9:23 AM EST us Carmenza Jimmy PA LAB BLOOD ORDERABLES Final Resul t [facility] [address] [place] [address], [place] [phone] * Cervical Cancer Screening: HPV (08/11/2014) Cervical Cancer Screening: HPV negative, abstracted Historical Provider HEALTH MAINTENANCE Final Result from Last 3 Months or Most Recently Relevant to Health Maintenance Insurance [facility] [facility] Care Teams Building Superintendent Relationship Specialty Start Date End Date Delon Rodarte MD [address] [place] [id number] PCP - General Internal Medicine 11/23/23
[2024-08-06 18:37] LABS: Influenza A PCR NEGATIVE (Negative); Influenza B PCR NEGATIVE (Negative); Resp Syncy Virus RNA Qual PCR NEGATIVE (Negative); SARS COV2 PCR INHOUSE NEGATIVE (Negative)
[2024-08-06 20:00] VITALS: BP 111/48; PULSE 74; RESP 22; TEMP 36.4; O2SAT 100
[2024-08-06 20:40] VITALS: PULSE 84; RESP 18; O2SAT 95
[2024-08-06] MEDS: Albuterol Sulfate (0.083%) 2.5 MG/3 ML VIAL.NEB INHALE (20:41)
[2024-08-06] MEDS: predniSONE 20 MG TABLET 40 MG PO (20:48)
--- NOTE | 2024-08-06 20:53 | PC.NURSE ---
Pt a&ox4, no signs of distress. Pt denies pain at this time Pt medicated per mar Plan of care ongoing.
[2024-08-06 22:17] VITALS: BP 103/52; PULSE 73; RESP 16; TEMP 36.3; O2SAT 100
[2024-08-06 22:21] VITALS: BP 103/52; PULSE 73; RESP 16; TEMP 36.3; O2SAT 100
== END 2024-08-06 22:23 | disposition home or self-care (01) ==
PROVIDERS: Physician Assistant Medical; Emergency Provider Emergency Medicine
DX: J45.901 Unspecified asthma with (acute) exacerbation (principal); R06.02 Shortness of breath; Z03.818 Encounter for observation for suspected exposure to other biological agents ruled out; R07.9 Chest pain, unspecified
CPT/HCPCS: 0241U; 71046; 80048; 80076; 83735; 84484; 85025; 93005; 94640; 99284; 99285

== ENCOUNTER → 2024-08-06 17:25 | Outpatient (BNV) | payer MEDICAID, SELFPAY | PROVIDERS: Emergency Provider Emergency Medicine; Visit Provider Internal Medicine Cardiovascular Disease | DX: R07.9 Chest pain, unspecified (principal) | CPT/HCPCS: 93010 ==

== ENCOUNTER → 2024-08-06 17:46 | Outpatient (BNV) | payer MEDICAID, SELFPAY | PROVIDERS: Emergency Provider Emergency Medicine; Visit Provider Radiology Diagnostic Radiology | DX: R06.02 Shortness of breath (principal) | CPT/HCPCS: 71046 ==

== ENCOUNTER 2024-08-12 14:21 | Emergency (ER) | payer MEDICAID, SELFPAY ==
--- NOTE | ~2024-08-12 | CT_ITS ---
EXAMINATION: CT HEAD WITHOUT CONTRAST CLINICAL INFORMATION: Headache COMPARISON: None available. TECHNIQUE: Contiguous axial imaging was performed from the skull base to vertex without intravenous administration of contrast. This CT examination was performed using dose optimization techniques as appropriate, variously including the following: *Automated exposure control *Adjustment of mA and/or kV according to patient size (this includes techniques or standardized protocols for targeted exams where dose is matched to indication/reason for exam; i.e. extremities or head) *Use of iterative reconstruction technique FINDINGS: There is no evidence of intracranial hemorrhage or extra-axial fluid collection. There is no mass effect, or edema. No CT evidence of acute territorial infarct. Ventricles, sulci, and cisterns are normal in size and configuration for patient age. No hydrocephalus. No midline shift. Negative hyperdense MCA sign. Negative insular ribbon sign. No significant white matter abnormalities. Normal pituitary gland. Globes and orbital contents image normally. No extracranial soft tissue abnormalities. The paranasal sinuses, mastoid air cells, and tympanic cavities are normally aerated. No suspicious bony abnormalities. There are no acute fractures evident. CT/CT head/brain wo IV con IMPRESSION: No acute intracranial abnormality. Electronically signed by: Ramos Joe MD 08/12/2024 04:27 PM EDT
[2024-08-12 14:44] VITALS: BP 121/64; PULSE 78; RESP 20; TEMP 37.1; O2SAT 100; BMI 32.1
--- NOTE | 2024-08-12 14:50 | ECG_ITS ---
Test Reason : HEADACHE Blood Pressure : */* mmHG Vent. Rate : 73 BPM Atrial Rate : 73 BPM P-R Int : 124 ms QRS Dur : 76 ms QT Int : 418 ms P-R-T Axes : 88 59 45 degrees QTcB Int : 460 ms Normal sinus rhythm Normal ECG When compared with ECG of 06-Aug-2024 17:30, No significant change was found Referred By: Reji Jacobsen Electronically Signed By: MIKA BA
--- NOTE | 2024-08-12 14:57 | ED_ITS ---
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 She reports that she was able to go to work without issue. Around 1:00 p.m. she felt as if her headache worsened and she got numbness and tingling in both of her hands and felt dizzy The dizziness has since resolved She still complains of a frontal headache with some nausea and light sensitivity Related Data Previous Rx's ?Medication ?Instructions ?Recorded acetaminophen 500 mg capsule 500 mg PO Q6H PRN fever or pain 02/04/24 #20 caps peg 3350-electrolytes 236 240 ml PO Q10M colonoscopy #4,000 03/31/24 gram-22.74 gram-6.74 gram-5.86 mL gram solution (Golytely) albuterol sulfate 2.5 mg/3 mL 2.5 mg (3 mL) inhalation Q4-6H PRN 08/06/24 (0.083 %) solution for nebulization shortness of breath or wheezing #75 mL prednisone 20 mg tablet 40 mg (2 x 20 mg) PO DAILY #8 tabs 08/06/24 Allergies Allergy/AdvReac Type Severity Reaction Status Date / Time No Known Allergies Allergy Verified 08/12/24 14:46 Review of Systems 2 Constitutional: Constitutional: Denies body ache(s), Denies chills, Denies fever(s), Denies frequent falls and Reports headache(s) Eyes: Eyes: Denies blurry vision and Reports photophobia ENT: Denies dysphagia, Denies vertigo, Reports dizziness and Reports headache(s) Cardiovascular: Cardiovascular: Denies chest pain and Denies dyspnea Respiratory: Respiratory: Denies cough and Denies dyspnea Gastrointestinal: Gastrointestinal: Denies abdominal pain, Denies dysphagia, Denies nausea and Denies vomiting Musculoskeletal: Musculoskeletal: Denies back pain, Denies numbness and Reports tingling Integumentary/Breasts: Skin/Breast: Denies rash Neurologic: Denies vertigo, Reports dizziness, Denies frequent falls, Reports headache(s), Denies focal weakness, Denies numbness, Denies seizure-like activity and Reports tingling Psychiatric: Psychiatric: Denies anxiety and Denies suicidal ideation PMFSH Social History Social History Unable to assess alcohol history related to: Unknown Smoked in Last 30 Days: No Use of substances other than those prescribed or required for medical reasons: No Advance Directives: No Advance Directives Information Provided: No Do you have a plan to hurt others: No Plan Patient : No Physical Exam ED Vital Signs: Vital Signs - 24 hr 08/12/24 21:54 Temperature 98.3 F Pulse Rate 65 Respiratory Rate 18 Blood Pressure 106/60 Pulse Oximetry 97 Oxygen Delivery Method Room Air BMI result Body Mass Index 32.1 Const General: healthy appearing, comfortable, no acute distress, alert and awake Nutritional Appearance: well nourished Orientation/consciousness: patient oriented x3 HENMT Head: Yes normocephalic and Yes atraumatic Eyes Eyelids: Yes eyelids normal Conjunctivae: conjunctivae normal Sclerae: sclerae normal Corneas: corneas normal Pupils: Equal, round and reactive pupils present EOM: EOMs intact bilaterally Direct Ophthalmoscopy: photophobia Neck Neck: Yes full ROM Resp Effort & Inspection: normal respiratory effort, able to speak in complete sentences and not labored Skin General skin exam: elasticity normal Neuro General: patient oriented x3 Cranial nerves: Yes CN's II-XII intact bilaterally, Yes Equal, round and reactive pupils present and Yes Bilaterally intact EOM present Cognition (Neuro): normal cognition Coordination: [id number] test normal, [id number] test normal and Romberg test negative Extrem Other: Moving all extremities well without any obvious deformities Course Course Course Narrative: RME: 49 yold female presents to the ED for headache since this morning. Patient describes headache as head pressure. Patient denies slurred speech, facial droop, loss of vision, or paralysis of extremiities. Patient admits to photophobia. Negative for any neuro deficits. NIH score is 0. Labs EKG head CT scan ordered Reevaluation(s) Reevaluation #1: Patient's headache has resolved after medication, she remains with no neuro deficits. She will be discharged to follow up with her PCP Time: 21:47 Medications Administered Discontinued Medications Generic Name Dose Route Start Last Admin Trade Name Robert PRPercy Reason Stop Dose Admin Diphenhydramine HCl 25 mg 08/12/24 19:54 08/12/24 20:05 Diphenhydramine Hcl 50 Mg/Ml Vial IVPUSH 08/12/24 19:55 25 mg ONCE ONE Administration Sodium Chloride 1,000 mls @ 999 mls/hr 08/12/24 20:00 08/12/24 21:11 Ns IV 08/12/24 21:00 Infused .Q1H1M MADELINE Infusion Ketorolac Tromethamine 30 mg 08/12/24 19:54 08/12/24 20:05 Ketorolac Tromethamine 30 Mg/Ml Vial IVPUSH 08/12/24 19:55 30 mg ONCE ONE Administration Metoclopramide HCl 10 mg 08/12/24 19:54 08/12/24 20:05 Metoclopramide Hcl 10 Mg/2 Ml Vial IVPUSH 08/12/24 19:55 10 mg ONCE ONE Administration Medical Decision Making Medical Decision Making [facility] Narrative: 49-year-old female presents for evaluation of a headache that started at 6:00 a.m. when she woke up. She reports that she was able to go through her day without difficulty despite the headache. Around 1:00 p.m., about 7 hours ago she had some dizziness that was episodic and developed light sensitivity, nausea and worsening headache. The dizziness has resolved but she continues with a headache. She has no focal neuro deficits including no cerebellar signs. PET- CT scan of her brain was ordered in triage given her new onset headaches and did not show any acute findings. The patient's hematology has no significant findings, she has no leukocytosis or left shift. Chemistries without any significant abnormality warranting intervention. Her BUN is slightly elevated which could be related to mild dehydration but she has had an elevated BUN of the past Differential Diagnosis Differential Diagnoses: The differential diagnosis associated with the presentation includes Acute headache Migraine headache CVA Posterior CVA KARELY Orthostasis Lab Data [facility] Lab Attestation statement: I reviewed the patient's lab results. As above 08/12/24 15:31 08/12/24 15:31 Labs: Lab Results 08/12/24 Range/Units 15:31 WBC 8.4 (4.8-10.8) X10*3/uL RBC 4.15 L (4.20-5.50) X10*6/uL Hgb 12.4 (12.0-16.0) g/dl Hct 37.0 (37.0-47.0) % MCV 89.2 (80.0-98.0) fL MCH 29.9 (27.0-33.0) pg MCHC 33.5 (31.0-35.0) g/dl RDW 13.8 (11.0-16.0) % Plt Count 375 (160-400) X10*3/uL MPV 9.5 (9.4-12.3) fL Immature Gran % (Auto) 0.4 (0.0-0.4) % Neut % (Auto) 47.3 (45-73) % Lymph % (Auto) 42.2 H (20-40) % Mccracken % (Auto) 8.1 (2-11) % Eos % (Auto) 1.4 (0-4) % Baso % (Auto) 0.6 (0-2) % Lymph # (Auto) 3.5 (1.2-4.9) X10*3/uL Mccracken # (Auto) 0.7 (0.1-1.2) X10*3/uL Eos # (Auto) 0.1 (0.0-0.4) X10*3/uL Baso # (Auto) 0.1 (0.0-0.2) X10*3/uL Abs Immat Gran (auto) 0.03 (0.00-0.03) X10*3/uL Absolute Neuts (auto) 4.0 (2.0-8.3) x10*3/uL Absolute Nucleated RBC 0.000 (0.0-0.012) X10*3/uL Nucleated RBC % (auto) 0.0 (0.0-0.2) /100WBC PT 10.3 L (10.9-12.4) SEC INR 0.9 (0.9-1.1) APTT 27.2 (26.0-36.8) SEC Sodium 140 (135-145) mmol/L Potassium 3.5 (3.3-5.1) mmol/L Chloride 109 H (96-108) mmol/L Carbon Dioxide 21 L (22-29) mmol/L Anion Gap 14 (12-20) BUN 20 H (9-16) mg/dL Creatinine 0.90 (0.5-1.4) mg/dL Estim Creat Clear Calc 69.4 Estimated GFR > 60 Random Glucose 80 (60-115) mg/dL Calcium 9.0 D (8.4-10.2) mg/dL Total Bilirubin 0.3 (0.0-1.0) mg/dL AST 18 (5-31) U/L ALT 16 (0-31) U/L Alkaline Phosphatase 61 (39-117) U/L Troponin I High Sens < 2.7 (<3.5-17.0) ng/L Total Protein 7.3 (6.5-8.0) g/dL Albumin 4.1 (3.5-5.0) g/dL Influenza Type A (PCR) NEGATIVE (Negative) Influenza Type B (PCR) NEGATIVE (Negative) RSV RNA Qual (PCR) NEGATIVE (Negative) SARS-CoV-2 RNA (RT-PCR) NEGATIVE (Negative) Radiology Impression Discussion of test interpretation with radiology: I have reviewed the radiologist's reading. Radiologist Impression: FINDINGS: There is no evidence of intracranial hemorrhage or extra-axial fluid collection. There is no mass effect, or edema. No CT evidence of acute territorial infarct. Ventricles, sulci, and cisterns are normal in size and configuration for patient age. No hydrocephalus. No midline shift. Negative hyperdense MCA sign. Negative insular ribbon sign. No significant white matter abnormalities. Normal pituitary gland. Globes and orbital contents image normally. No extracranial soft tissue abnormalities. The paranasal sinuses, mastoid air cells, and tympanic cavities are normally aerated. No suspicious bony abnormalities. There are no acute fractures evident. CT/CT head/brain wo IV con IMPRESSION: No acute intracranial abnormality. Electronically signed by: Ramos Joe MD 08/12/2024 04:27 PM EDT Discharge Plan Discharge Clinical Impression: Headache Patient Disposition: Home, Self-Care Instructions: Acute Headache (ED) Additional Instructions: Your workup in the ER today was reassuring. Your CT scan did not show any concerning findings. You may use ibuprofen/Tylenol as needed for pain. Follow-up with your primary doctor, return for new or worsening symptoms Prescriptions: No Action albuterol sulfate 2.5 mg /3 mL (0.083 %) solution for nebulization 2.5 mg inhalation Q4-6H PRN (Reason: shortness of breath or wheezing) Qty: 75 0RF prednisone 20 mg tablet 40 mg PO DAILY Qty: 8 0RF acetaminophen 500 mg capsule 500 mg PO Q6H PRN (Reason: fever or pain) Qty: 20 0RF peg 3350-electrolytes [Golytely] 236-22.74-6.74 -5.86 gram recon soln 240 ml PO Q10M Qty: 4000 0RF Rx Instructions: as per split prep instructions, until fecal effluent is clear Stand Alone Forms: Work/School Release Interventions: ED Discharge Assessment Last Done: 08/12/24 21:54 Discharge Date/Time: 08/12/24 21:55 Print Language: Austrian
[2024-08-12 15:34] LABS: MANUAL DIFF FLAG NO
[2024-08-12 15:36] LABS: Basophils Absolute Auto 0.1 X10*3/uL (0.0-0.2); Basophils Percent Auto 0.6 % (0-2); Eosinophils Absolute Auto 0.1 X10*3/uL (0.0-0.4); Eosinophils Percent Auto 1.4 % (0-4); Hemoglobin 12.4 g/dl (12.0-16.0); Imm Gran Abs Auto 0.03 X10*3/uL (0.00-0.03); Imm Gran Pct Auto 0.4 % (0.0-0.4); Lymphocytes Absolute Auto 3.5 X10*3/uL (1.2-4.9); Lymphocytes Percent Auto 42.2 % (20-40); Mean Corpuscular HGB Conc 33.5 g/dl (31.0-35.0); Mean Corpuscular Hemoglobin 29.9 pg (27.0-33.0); Mean Corpuscular Volume 89.2 fL (80.0-98.0); Mean Platelet Volume 9.5 fL (9.4-12.3); Monocytes Absolute Auto 0.7 X10*3/uL (0.1-1.2); Monocytes Percent Auto 8.1 % (2-11); Neutrophils Percent Auto 47.3 % (45-73); Platelet Count 375 X10*3/uL (160-400); Red Blood Count 4.15 X10*6/uL (4.20-5.50); Red Cell Distribution Width 13.8 % (11.0-16.0); White Blood Count 8.4 X10*3/uL (4.8-10.8)
[2024-08-12 15:42] LABS: INTERNATIONAL NORM RATIO 0.9 (0.9-1.1); Prothrombin Time 10.3 SEC (10.9-12.4)
[2024-08-12 15:45] LABS: Partial Thromboplastin Time 27.2 SEC (26.0-36.8)
[2024-08-12 15:58] LABS: Alanine Aminotransferase 16 U/L (0-31); Albumin Level 4.1 g/dL (3.5-5.0); Anion Gap 14 (12-20); Aspartate Amino Transferase 18 U/L (5-31); Bilirubin Total 0.3 mg/dL (0.0-1.0); Blood Urea Nitrogen 20 mg/dL (9-16); Carbon Dioxide 21 mmol/L (22-29); Chloride 109 mmol/L (96-108); Creatinine Clr Calc Pharmacy 69.4; Estimated Glomerular Filt Rate > 60; Glucose Random 80 mg/dL (60-115); Potassium 3.5 mmol/L (3.3-5.1); Sodium 140 mmol/L (135-145); Total Protein 7.3 g/dL (6.5-8.0)
[2024-08-12 16:00] LABS: Troponin-I High Sensitivity < 2.7 ng/L (<3.5-17.0)
[2024-08-12 16:30] LABS: Influenza A PCR NEGATIVE (Negative); Influenza B PCR NEGATIVE (Negative); Resp Syncy Virus RNA Qual PCR NEGATIVE (Negative); SARS COV2 PCR INHOUSE NEGATIVE (Negative)
[2024-08-12 17:06] LABS: Alkaline Phosphatase 61 U/L (39-117)
--- OUTSIDE RECORDS SUMMARY | 2024-08-12 19:35 | XMS_ITS | Continuity of Care Document ---
Author Organization [facility] Address [address] [place] [address] Phone Care Team Providers Care Structural Engineer Name Role Phone Marlene Tim Unavailable Unava ilable Allergies, Adverse Reactions, Alerts Substance Reaction Status Criticality No Known Allergies Active No Inform ation Procedures Procedure Date OFFICE/OUTPATIENT VISIT, [facility] Advance Directives Directive Yes / No Effective Date File Name No Information Encounters Encounter Description Practice Location Reason(s) For Visit Diagnoses Date Provider Providers Copied on Encounter OFFICE/OUTPAT IENT VISIT, [facility], [id number] [place], , [id number], [place] tel:[phone] [facility] [place] [facility] Sebaceous cyst Nick Rosario. [address] [facility], [place], , [id number], [place]. tel:[phone] Family History Family Member Type Diagnosis Age At Onset Problem (finding) Family history of hyper tension Problem (finding) Family history of Diabe sandoval mellitus Payers Payer name Insurance type Covered constitution party ID Authoriza tion(s) No Information Social [...] Mental Status Date Cognitive Assessment Orientation - [place] ed to time, place, person, situation. Patient Care Teams Name Effective Dates (start - stop) Status Members No Information
[2024-08-12] MEDS: 0.9 % Sodium Chloride 1,000 ML 999 ML IV (20:05)
[2024-08-12] MEDS: Ketorolac Tromethamine 30 MG/ML VIAL IVPUSH (20:05)
[2024-08-12] MEDS: diphenhydrAMINE HCL 50 MG/ML VIAL 25 MG IVPUSH (20:05)
[2024-08-12] MEDS: Metoclopramide HCl 10 MG/2 ML VIAL IVPUSH (20:05)
--- NOTE | 2024-08-12 20:29 | PC.NURSE ---
disposal worker at bedside. 20G placed in right ac, pt medicated per mar for 10/10 headache. lights dimmed.
[2024-08-12 21:54] VITALS: BP 106/60; PULSE 65; RESP 18; TEMP 36.8; O2SAT 97
== END 2024-08-12 21:55 | disposition home or self-care (01) ==
PROVIDERS: Physician Assistant; Emergency Provider Emergency Medicine
DX: R51.9 Headache, unspecified (principal); R42 Dizziness and giddiness; R11.0 Nausea; Z03.818 Encounter for observation for suspected exposure to other biological agents ruled out; Z79.899 Other long term (current) drug therapy
CPT/HCPCS: 0241U; 70450; 80053; 84484; 85025; 85610; 85730; 93005; 99284; 99285; J1200; J1885; J2765

== ENCOUNTER → 2024-08-12 14:50 | Outpatient (BNV) | payer MEDICAID, SELFPAY | PROVIDERS: Emergency Provider Emergency Medicine; Visit Provider Internal Medicine | DX: R51.9 Headache, unspecified (principal) | CPT/HCPCS: 93010 ==

== ENCOUNTER → 2024-08-12 14:50 | Outpatient (BNV) | payer MEDICAID, SELFPAY | PROVIDERS: Visit Provider Radiology Diagnostic Radiology | DX: R51.9 Headache, unspecified (principal) | CPT/HCPCS: 70450 ==

== ENCOUNTER 2025-03-15 10:56 | Emergency (ER) | payer OTHER, SELFPAY ==
--- OUTSIDE RECORDS SUMMARY | 2016-06-27 06:00 | XMS_ITS | Continuity of Care Document ---
Author Organization [facility] Address [address] [place] [phone] Phone Care Team Providers Care Student Assistant Name Role Phone Marlene Tim Unavailable Unava ilable Allergies, Adverse Reactions, Alerts Substance Reaction Status Criticality No Known Allergies Active No Inform ation Procedures Procedure Date OFFICE/OUTPATIENT VISIT, [facility] Advance Directives Directive Yes / No Effective Date File Name No Information Encounters Encounter Description Practice Location Reason(s) For Visit Diagnoses Date Provider Providers Copied on Encounter OFFICE/OUTPAT IENT VISIT, [facility], [address] [place], , [id number], [place] tel:[phone] [facility] [place] [facility] Sebaceous cyst Nick Rosario. [address] [facility], [place], , [id number], [place]. tel:[phone] Family History Family Member Type Diagnosis Age At Onset Problem (finding) Family history of hyper tension Problem (finding) Family history of Diabe sandoval mellitus Payers Payer name Insurance type Covered libertarian ID Authoriza tion(s) No Information Social History [...] Mental Status Date Cognitive Assessment Orientation - [place] ed to time, place, person, situation. Patient Care Teams Name Effective Dates (start - stop) Status Members No Information
--- OUTSIDE RECORDS SUMMARY | 2025-03-12 09:30 | XMS_ITS | Encounter Summary ---
Author Organization [employer] [facility] Address [address] [place] [address] Care Team Providers Care Golf Course Architect Name Role Phone Delon Rodarte MD Primary Care Provider Reason for Referral * Consultation (Routine) - Pending Review Specialty Diagnoses / Procedures Referred By Lupe owusu Referred To Contact Gynecology Diagnoses Pap smear for cervical cancer screening Carmenza Marquez PA [address] [place] [address] Phone: tel: fax: [address] [address] Phone: tel: fax: Referral ID Status Reason Start Date Expiration Date Visits Requested Visits Authorized [id number] Pending Review Specialty Services Required 03/12/2026 1 1 * Imaging (Routine) - Pending Review Specialty Diagnoses / Procedures Referred By Lupe owusu Referred To Contact Radiology Diagnoses Encounter for screening mammogram for malignant neoplasm of breast Procedures MG Mammo Digital Screening bilat Carmenza Marquez PA [address] [place] [address] Phone: tel: fax: [address] Phone: tel: Referral ID Status Reason Start Date Expiration Date V isits Requested Visits Authorized [id number] Pending Review 03/12/2025 03/12/2026 1 1 Reason for Visit * Reason Comments Asthma Follow-up Med review Encounter Details Date Type Department Care Team ([facility] st Contact Info) Description 03/12/2025 9:30 AM EST Office Visit Adult Medicine [facility] [address], [place] [phone] Carmenza Marquez PA [address], [place] Mild persistent asthma without complication (Primary Dx); Mixed hyperlipidemia; Prediabetes; Need for prophylactic vaccination and inoculation against influenza; Encounter for screening mammogram for malignant neoplasm of breast; Pap smear for cervical cancer screening Social History Tobacco Use Types Packs/Day Years Used Date Smoking Tobacco: Former Cigarettes 0.8 29.7 0 10/27/1994 - 06/23/2024 Tobacco Cessation:Counseling Given: Not Answered Alcohol Use Standard Drinks/Week Comments Yes 0 (1 standard drink = 0.6 oz pur e alcohol) socially Housing Instability Answer Date Recorde d Are [...] care for your loved ones. For example, childcare director or elderly care for an older [...] Date Recorded What is your living situation? Unrecognized valu e 04/11/2024 Interpersonal Safety Answer Date Record ed Physical Abuse Unrecognized value 01/01/2025 Verbal Abuse Unrecognized value 01/01/2025 Comments No Sex and Gender Information Value Date Recorded Sex Assigned at Female 01/01/2025 12:13 PM EDT Legal Sex Female 4:36 AM EST Gender Identity Female 01/01/2025 12:13 PM EDT Sexual Orientation Straight 01/01/2025 12 :13 PM EDT Occupation Industry Job Start Date Job End Date works at [employer] Not on file Not on file Not on file documented as of this encounter Last Filed Vital Signs Vital Sign Reading Time Taken Comments Blood Pressure 96/63 03/12/2025 9:22 AM EST Pulse 62 03/12/2025 9:22 AM EST Temperature 35.8 C (96.5 F) 03/12/2025 9:22 AM EST Respiratory Rate 16 03/12/2025 9:22 AM EST Oxygen Saturation 100% 03/12/2025 9:22 AM EST Inhaled Oxygen Concentration - - Weight 79.8 kg (176 lb) 03/12/2025 9:22 AM EST Height 154.9 cm (5' 1 ) 03/12/2025 9:22 AM EST Body Mass Index 33.25 03/12/2025 9:22 AM EST documented in this encounter Ordered Prescriptions Prescription Sig Dispense Quantity Refills Last Filled Start Date End Date fluticasone furoate (ARNUITY ELLIPTA) 100 mcg/actuation blister with device inhaler Inhale 1 puff by mouth 1 (one) time each day. 1 each 12 03/12/2025 albuterol HFA (ProAir HFA) 90 mcg/actuation inhalerIndications :Mild persistent asthma without complication Inhale 2 puffs by mouth every 4 (four) hours if needed for wheezing or shortness of breath. 8.5 g 1 03/12/2025 documented in this encounter Progress Notes * MAURA Rowland - 03/12/2025 9:30 AM EST CHIEF COMPLAINT: Asthma and Follow-up (Med review) IDENTIFIER: Griffin Mace is a 49 y.o. old female. HPI: Patient is a 49-year-old female who presents to the office today for a medication review. She speaks Cuban and beeswax bleacher services # [id number] was used today. She has asthma, prediabetes and hyperlipidemia. She has been using albuterol inhaler more often, approximately 4 times a week, sometimes multiple times a day. She is a former smoker. ROS: GENERAL: No malaise, significant weight loss or fever HEENT: No changes in vision RESPIRATORY: See HPI CARDIOVASCULAR: No chest pain, leg swelling or palpitations NEURO: No persistent headache PAST MEDICAL HISTORY: Patient Active Problem List Diagnosis Date Noted Mixed hyperlipidemia 04/11/2024 Tobacco use disorder 04/11/2024 Mild intermittent asthma without complication 04/11/2024 Prediabetes 04/11/2024 Tattoo of skin 08/01/2013 Anxiety disorder 06/20/2013 Bipolar disorder ([facility] V24, [facility] V28) 06/20/2013 Insomnia 06/20/2013 Surgical History[1] SOCIAL HISTORY: Social History Tobacco Use Smoking status: Former Current packs/day: 0.00 Average packs/day: 0.8 packs/day for 29.7 years (22.2 ttl pk-yrs) Types: Cigarettes Start date: 10/27/1994 Quit date: 06/23/2024 Years since quittin.7 Smokeless tobacco: Not on file Substance Use Topics Alcohol use: Yes Comment: socially FAMILY HISTORY: Family History[2] MEDICATIONS DISCONTINUED/REORDERED: Medications Discontinued During This Encounter Medication Reason bisacodyL (DULCOLAX) 5 mg EC tablet Therapy completed polyethylene glycol (Golytely) 236-22.74-6.74 -5.86 gram solution Therapy completed albuterol HFA (ProAir HFA) 90 mcg/actuation inhaler Reorder ACTIVE MEDICATIONS: Medications Taking[3] ALLERGIES: Allergies[4] PHYSICAL EXAM: Blood pressure 96/63, pulse 62, temperature 35.8 ??C (96.5 ??F), temperature source Temporal, resp.rate 16, height 1.549 m (61 ), weight 79.8 kg (176 lb), SpO2 100%. Body mass index is 33.25 kg/m??.BMI is greater than 25.0 (above the normal range) - see Plan APPEARANCE: Alert and in no acute distress HEART: RRR with normal S1 and S2, no murmurs, no gallops LUNG: Clear to auscultation EXTREMITIES: No edema NEURO: Awake, alert and oriented x 3 LABS: Labs are pending Lab Results Component Value Date CHOL 275 (H) 10/21/2024 CHOL 238 (H) 04/11/2024 CHOL 254 (A) 08/01/2013 Lab Results Component Value Date HDL 74 10/21/2024 HDL 84 04/11/2024 HDL 78 08/01/2013 Lab Results Component Value Date LDLCALC 172 (H) 10/21/2024 LDLCALC 138 (H) 04/11/2024 Lab Results Component Value Date TRIG 147 10/21/2024 TRIG 78 04/11/2024 TRIG 96 08/01/2013 Lab Results Component Value Date CHOLHDL 3.7 10/21/2024 CHOLHDL 2.8 04/11/2024 Lab Results Component Value Date HGBA1C 5.7 10/21/2024 Lab Results Component Value Date NA 140 04/11/2024 K 4.0 04/11/2024 CL 109 04/11/2024 CO2 23 04/11/2024 GLUCOSE 89 04/11/2024 BUN 19 04/11/2024 CREATININE 0.83 04/11/2024 CALCIUM 9.8 04/11/2024 PROT 7.3 04/11/2024 ALBUMIN 3.9 04/11/2024 BILITOT 0.4 04/11/2024 AST 15 04/11/2024 ALT 21 04/11/2024 ALKPHOS 69 04/11/2024 EGFR 86 04/11/2024 IMAGING: None IMPRESSION/PLAN: 1. Mild persistent asthma without complication albuterol HFA (ProAir HFA) 90 mcg/actuation inhaler 2. Mixed hyperlipidemia Comprehensive metabolic panel 3. Prediabetes 4. Need for prophylactic vaccination and inoculation against influenza Influenza trivalent, MDCK, 0.5mL, preservative free (Flucelvax) 6mo and older 5. Encounter for screening mammogram for malignant neoplasm of breast MG Mammo Digital Screening bilat 6. Pap smear for cervical cancer screening Ambulatory referral to Gynecology Medication and lab orders: Orders Placed This Encounter Procedures MG Mammo Digital Screening bilat Influenza trivalent, MDCK, 0.5mL, preservative free (Flucelvax) 6mo and older Comprehensive metabolic panel Ambulatory referral to Gynecology Other orders: INFLUENZA TRIVALENT, MDCK, 0.5ML, PRESERVATIVE FREE (FLUCELVAX) 6MO AND OLDER MG MAMMO DIGITAL SCREENING BILAT AMB REFERRAL TO GYNECOLOGY Persistent asthma. She has been using albuterol inhaler more often. Prescribed Arnuity Ellipta oncedaily. Discussed side effects. Continue albuterol inhaler as needed. Mixed hyperlipidemia with LDL 172. She has been taking Crestor daily, is tolerating the medication.Labs are pending. Prediabetes with hemoglobin A1c 5.7%. Discussed low-carb diet. Labs are pending. Flu shot administered today. Mammogram ordered again. Referral sent for Pap smear again. I have applied the code G2211 to this patient???s visit as the primary care provider dealing with (see above issues) leading to the extensive work up, and management associated with the medical care of this patient. I have reviewed all information as it pertains to the management of this patient for final approval. Advised the patient to call me if any problems. Patient understands the plan. Patient is in agreement with the plan. Today's documentation was made using voice recognition software.This note may contain grammatical errors secondary to this software. Carmenza Marquez PA-C [1] Past Surgical History: Procedure Laterality Date SHOULDER SURGERY Left 2021 TUBAL LIGATION [2] Family History Problem Relation Name Age of Onset No Known Problems Mother killed, anemia Diabetes Father HTN No Known Problems Sister ESRD Maternal Grandmother No Known Problems Maternal Grandfather No Known Problems Paternal Grandmother neurological condition? No Known Problems Paternal Grandfather Lung cancer Neg Hx [3] Outpatient Medications Marked as Taking for the 03/12/25 encounter (Office Visit) with MAURA Rowland Medication Sig Dispense Refill albuterol HFA (ProAir HFA) 90 mcg/actuation inhaler Inhale 2 puffs by mouth every 4 (four) hours ifneeded for wheezing or shortness of breath. 8.5 g 1 rosuvastatin (CRESTOR) 20 mg tablet Take 1 tablet (20 mg total) by mouth 1 (one) time each day. 90 each 1 [DISCONTINUED] albuterol HFA (ProAir HFA) 90 mcg/actuation inhaler Inhale 2 puffs by mouth every 4 (four) hours if needed for wheezing or shortness of breath. 8.5 g 0 [4] No Known Allergies * Caroline Felder MA - 03/12/2025 9:30 AM EST Depression Screening Will the patient answer the depression risk questions?: Yes Over the last 2 weeks, how often have you been bothered by little interest or pleasure in doing things?: Not at all Over the last 2 weeks, how often have you been bothered by feeling down, depressed, or hopeless?: Not at all Depression Risk: 0 Additional Depression Screening PHQ -9 Depression Risk Score: 0 Screening Result: Negative Risk Category: Negative * Caroline Felder MA - 03/12/2025 9:30 AM EST INFLUENZA VACCINE The patient acknowledges that they will be receiving the Influenza (Flu) vaccine today: yes Flu vaccine formulation is: Flucelvax (preservative free): Patient denies allergy to previous flu vaccine. yes Immunization tab reviewed: Patient acknowledges they have NOT received a flu vaccine for the . yes Denies history of Guillain-[place] Syndrome (severe muscle weakness). yes Acknowledges reviewing the VIS Seasonal Flu (copy made available). yes Patient Denies moderate or severe illness or fever of >100 degrees F. yes Agrees to wait in the office/car for 20 minutes after receiving the influenza injection. yes No restriction for Influenza vaccine administered IM See Imm/Inj tab. Electronically signed by: Caroline Felder MA 03/12/2025 9:49 AM EST documented in this encounter Plan of Treatment Upcoming Encounters Date Type Department Care Team (Late st Contact Info) Description 04/29/2025 9:30 AM EST Office Visit Adult Medicine [facility] [address], [place] [phone] Delon Rodarte MD [address], [place] Scheduled Orders Name Type Priority Associated Diagnoses Orde r Schedule Comprehensive metabolic panel Lab Routine Mixed hyperlipidemia Expected: 03/12/2025, Expires: 03/12/2026 MG Mammo Digital Screening bilat Imaging Routine Encounter for screening mammogram for malignant neoplasm of breast Expected: 03/12/2025, Expires: 03/12/2026 Scheduled Referrals Name Type Priority Associated Diagnoses Order Schedule Ambulatory referral to Gynecology Outpatient Referral Routine Pap smear for cervical cancer screening 1 Occurrences starting 03/12/2025 until 03/12/2026 documented as of this encounter Visit Diagnoses Diagnosis Mild persistent asthma without complication- Primary Mixed hyperlipidemia Prediabetes Other abnormal glucose Need for prophylactic vaccination and inoculation against influenza Encounter for screening mammogram for malignant neoplasm of breast Pap smear for cervical cancer screening Screening for malignant neoplasm of the cervix documented in this encounter Discontinued Medications Medication Sig Discontinue Reason Start Date End Da te bisacodyL (DULCOLAX) 5 mg EC tablet Take 2 tablets by mouth right before beginning bowel prep. See instructions provided by the office Therapy completed 12/18/2024 03/12/2025 polyethylene glycol (Golytely) 236-22.74-6.74 -5.86 gram solution Take 4L by mouth once for one dose. May substitue any PEG. Starting at 2PM the day before your procedure drink 1 8oz glasses at your own pace until you complete half of the gallon. Finish 2nd half of the gallon at 8PM. Therapy completed 12/18/2024 03/12/2025 albuterol HFA (ProAir HFA) 90 mcg/actuation inhalerIndications:Mil d intermittent asthma without complication Inhale 2 puffs by mouth every 4 (four) hours if needed for wheezing or shortness of breath. Reorder 04/11/2024 03/12/2025 documented as of this encounter Orders Immunization/Injection Count Last Ordered Date First Ordered Date INFLUENZA TRIVALENT, MDCK, 0 .5ML, PRESERVATIVE FREE (FLUCELVAX) 6MO AND OLDER 1 03/12/2025 documented in this encounter Additional Health Concerns Assessment Noted Time PHQ-9 Depression Total Score: 0 03/12/20 25 9:28 AM EST documented as of this encounter Care Teams Golf Course Architect Relationship Specialty Start Date End Date Delon Rodarte MD [address] [place] [address] PCP - General Internal Medicine 11/23/23 documented as of this encounter
--- NOTE | ~2025-03-15 | XR_ITS ---
CLINICAL HISTORY: great toe injury, pain 3 view right foot Comparison: None provided Findings: No fractures or dislocations. No significant loss of joint space, osteophytes, or erosions. No ankle effusion. No radiopaque foreign body. IMPRESSION: 1. No acute findings. This document has been electronically signed by: Lennox Galan MD on 03/15/2025 11:55:47
[2025-03-15 11:05] VITALS: BP 118/57; PULSE 83; RESP 16; TEMP 36.3; O2SAT 98; BMI 28.3
--- NOTE | 2025-03-15 11:10 | ED_ITS ---
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 Patient states that on 03/09/2025 she injured her right great toe at work and was having pain that was getting better and then her big dog jumped on it and now it hurts again. Patient denies any other complaints at this time. Related Data Previous Rx's ?Medication ?Instructions ?Recorded acetaminophen 500 mg capsule 500 mg PO Q6H PRN fever o r pain 02/04/24 #20 caps peg 3350-electrolytes 236 240 ml PO Q10M colonoscopy # 4,000 03/31/24 gram-22.74 gram-6.74 gram-5.86 mL gram solution (Golytely) albuterol sulfate 2.5 mg/3 mL 2.5 mg (3 mL) inhalation Q4-6H PRN 08/06/24 (0.083 %) solution for nebulization shortness of breat h or wheezing #75 mL prednisone 20 mg tablet 40 mg (2 x 20 mg) PO DAILY # 8 tabs 08/06/24 cephalexin 500 mg capsule 500 mg PO Q6H 7 days #28 cap s 03/15/25 Allergies Allergy/AdvReac Type Severity Reaction Status Date / Time No Known Allergies Allergy Verified 03/15/25 11:07 Review of Systems Constitutional: Constitutional: Reports as per HPI Eyes: Eyes: Reports as per HPI ENT: Reports as per HPI Cardiovascular: Cardiovascular: Reports as per HPI Respiratory: Respiratory: Reports as per HPI Gastrointestinal: Gastrointestinal: Reports as per HPI Genitourinary: Genitourinary: Reports as per HPI Musculoskeletal: Musculoskeletal: Reports as per HPI Integumentary/Breasts: Skin/Breast: Reports as per HPI Neurologic: Reports as per HPI Psychiatric: Psychiatric: Reports as per HPI Endocrine: Endocrine: Reports as per HPI Hematologic/Lymphatic: Hematologic/Lymphatic: Reports as per HPI Allergic/Immunologic: Allergic/Immunologic: Reports as per HPI PMFSH Past Medical History Attestation statement: The following information was validated with the patient. Source: old records reviewed and nursing notes reviewed Social History Social History Advance Directives: No Advance Directives Information Provided: Yes Physical Exam ED Vital Signs: Vital Signs - 24 hr 03/15/25 11:05 03/15/25 12:24 Temperature 97.3 F 97.3 F Pulse Rate 83 83 Respiratory Rate 16 16 Blood Pressure 118/57 L 118/57 L Pulse Oximetry 98 98 Oxygen Delivery Method Room Air Room Air BMI result Body Mass Index 28.3 Const General: cooperative, no acute distress, alert and awake Nutritional Appearance: well nourished Orientation/consciousness: patient oriented x3 HENMT Head: Yes normal to inspection and Yes atraumatic Ears: hearing grossly normal bilaterally and external ears normal General nose exam: Normal external nose present, no nasal discharge noted and no epistaxis Face and sinus: Yes normal facial exam, No abrasion and No laceration Mouth: Normal oral and palatal mucosa present, no drooling and no muffled voice Eyes General: appearance normal, both eyes and all related structures Periorbital: periorbital findings normal Eyelids: Yes eyelids normal Conjunctivae: conjunctivae normal Pupils: Equal, round and reactive pupils present EOM: EOMs intact bilaterally Neck Neck: Yes normal visual inspection and Yes full ROM Resp Effort & Inspection: normal respiratory effort and able to speak in complete sentences Neuro General: patient oriented x3, moves all extremities and CN's II-XI intact bilaterally Cranial nerves: Yes Equal, round and reactive pupils present Cognition (Neuro): normal cognition Extrem Other: right great toe erythema - nail well adhered to nail bed upon palpation of the right great toe nail - pus was expressed from the nailbed where the nail meets the skin General: Yes full ROM and Yes capillary refill normal Psych Appearance: grossly normal Mental Status: mental status grossly normal Affect: normal affect Attitude: cooperative Thought process: Normal thought process present Thought content: Normal thought content present Insight: Good insight present (Psych) Medical Decision Making Medical Decision Making MDM Narrative: Patient is a 49 year old assigned female at with no reported medical history presenting to the emergency department today with right great toe pain. Patient's physical exam was as noted in the physical exam portion of this note and consistent with a paronychia which is already open and draining and I assisted in expressing pus from the open area. Patient's right foot x-ray showed no acute process. Given the patient's paronychia is already draining - there is no need to further incise or open the area. I explained my physical exam findings as well as all test results to the patient. I answered all questions asked by the patient. I stressed the importance of the patient taking her medication as directed (either prescribed or as the over the counter packaging recommends). I stressed the importance of the patient following up with her primary care provider and the podiatry team. I stressed the importance of the patient taking her medication as prescribed and applying warm compresses to the area. I stressed the importance of the patient returning to the emergency department immediately if her symptoms were to worsen or if she were to develop any dizziness, shortness of breath, difficulty breathing, chest pain, blurry vision, loss of vision, nausea, vomiting, abdominal pain, fever, chills, back pain, or any other complaints. Patient verbalized agreement and understanding with this treatment plan and discharge. Differential Diagnosis Differential Diagnoses: The differential diagnosis associated with the presentation includes Right great toe contusion Right great toe fracture Right great toe cellulitis Right great toe paronychia Admission/Observation Consideration of admission/observation: Escalation of care including admission/observation considered Patient would have been admitted to the hospital had her work up had any findings where hospital admission was appropriate and her clinical presentation warranted hospital admission. Independent Interpretation I performed an independent interpretation of an: Plain X-Ray (right foot) Interpretation: My interpretation is in agreement with the radiologist's impression of this imaging study as written below. CLINICAL HISTORY: great toe injury, pain 3 view right foot Comparison: None provided Findings: No fractures or dislocations. No significant loss of joint space, osteophytes, or erosions. No ankle effusion. No radiopaque foreign body. IMPRESSION: 1. No acute findings. This document has been electronically signed by: Lennox Galan MD on 03/15/2025 11:55:47 Dictated By: Lennox Galan MD Signed By: Electronically signed by Lennox Galan MD 03/15/25 1156 Radiology Impression Discussion of test interpretation with radiology: I have reviewed the radiologist's reading. Prescription Management I considered prescription management with: Antibiotic (patient prescribed an antibiotic for right great toe paronychia) Discharge Plan Discharge Clinical Impression: Paronychia of great toe Patient Disposition: Home, Self-Care Instructions: Paronychia (ED) Additional Instructions: Your right foot x-ray showed no osmany injury (break/fracture). La radiograf?a de cruz pie derecho no mostr? ninguna lesi?n ?sea (rotura/fractura). Today, I expressed pus from the toe between the nail and the skin - which is consistent with a toe infection. Take your antibiotic as prescribed and apply warm compresses to the toe. Hoy he extra?do pus del dedo del pie, entre la u?a y la piel, lo que concuerda con jazmín infecci?n en el dedo. [place] el antibi?griffin seg?n lo prescrito y aplique compresas calientes en el dedo. Follow up with the podiatry team. Micah un seguimiento con el equipo de podolog?a. IF you are prescribed home medications and/or you are taking over the counter medications at home - it is very important you continue to do so as prescribed / directed unless told otherwise. SI le recetan medicamentos y/o est? tomando medicamentos de venta lore, es muy importante que contin?e haci?ndolo seg?n lo recetado/indicado a menos que le indiquen lo contrario. Follow up with your primary care provider. Return to the emergency department immediately if your symptoms worsen or if you develop any dizziness, shortness of breath, difficulty breathing, chest pain, blurry vision, loss of vision, nausea, vomiting, abdominal pain, fever, chills, back pain, or any other complaints. Micah?seguimiento?con cruz m?dico de atenci?n primaria. Acuda inmediatamente al servicio de urgencias si juliana s?ntomas empeoran o si presenta falta de aliento, dificultad para respirar, dolor tor?cico, mareos, aturdimiento, dolor de espalda, dolor abdominal, fiebre, escalofr?os o cualquier otro s?ntoma. If you do not have a primary care provider - call any of the below numbers to establish and follow up with a primary care provider. Si no tiene un proveedor de atenci?n primaria, llame a cualquiera de los n?meros que aparecen a continuaci?n para establecer y hacer seguimiento con un proveedor de atenci?n primaria. [facility] Primary Care ([place]) [phone] [place] [address], [id number] [facility] Primary Care ([address] [place]) [phone] [place] [address], [address] [facility], [address] [facility] Care ([address] [place]) [phone] [place] [address], [address] [facility], [address] [facility] ([place]) [phone] [place] [address] 2 [facility], [address] [facility] Family Medicine [phone] [place] [address], [address] Please see the information below about our Patient Portal. If you are not yet enrolled in the [facility] Patient Portal, you will receive an enrollment email invitation following your visit to any [facility] setting. You may also self-enroll in the Patient Portal by visiting our website: [email or web address] The following information is required to access the Patient Portal: - Your [facility] Medical Record Number - Your personal home email address (must match what is in your electronic medical record, Registration staff can assist with this) - Name - Date of Capabilities of the Patient Portal: - Message some providers - View upcoming appointments - Access your health summary, medical history, and visit history - View current conditions and allergies - View procedure and lab results - View your medications, including guidelines, side effects, and precautions - Complete pre-appointment questionnaires requested by your provider - Ready summary reports of your office visits and procedures To access the Patient Portal Mobile John, follow these directions: - Search [employer] in the John Store or [employer] Store - Download the John - Search for [facility] - Enter your login/password Portal del paciente Si usted no esta inscrito en el portal de pacientes de [facility], recibira jazmín invitacion de inscripcion despues de cruz v isita al [facility] o al [facility] via correo electronico. Tambien puede inscribirse voluntariamente en el portal de pacientes visitando nuestra pagina web: [email or web address] La siguiente informacion sera requerida para acceder al portal: - Cruz junito de historia medica de [facility] - Cruz direccion de correo electronico personal - Nombre - Fecha de nacimiento Capacidades: Las siguientes capacidades estan disponibles en el portal de pacientes: - Enviar mensajes a algunos doctores - Verificar proximas citas - Acceso a cruz historial de sonali, registro medico e historial de visitas - Tracy las condiciones actuales y alergias tracy procedimientos y resultados del laboratorio - Tracy juliana medicamentos, incluyendo las pautas - Efectos secundarios y precauciones - Completar o llenar formularios / cuestionarios de - Citas solicitadas por cruz doctor - Leer los resumenes de reportes medicos de juliana visitas y procedimientos Solo acceder a la aplicacion movil: - [employer] [facility] en la John Store o [employer] Store - Descargue la aplicacion - [facility] - Ingrese cruz nombre de usuario / Contrasena Prescriptions: New cephalexin 500 mg capsule 500 mg PO Q6H 7 Days Qty: 28 0RF No Action albuterol sulfate 2.5 mg /3 mL (0.083 %) solution for nebulization 2.5 mg inhalation Q4-6H PRN (Reason: shortness of breath or wheezing) Qty: 75 0RF prednisone 20 mg tablet 40 mg PO DAILY Qty: 8 0RF acetaminophen 500 mg capsule 500 mg PO Q6H PRN (Reason: fever or pain) Qty: 20 0RF peg 3350-electrolytes [Golytely] 236-22.74-6.74 -5.86 gram recon soln 240 ml PO Q10M Qty: 4000 0RF Rx Instructions: as per split prep instructions, until fecal effluent is clear Referrals: [facility] Podiatry [Provider Group, Podiatry] Referral Note: Call to establish and follow up with the podiatry team for your right great toe infection. Llame para concertar jazmín erica y realizar un seguimiento con el equipo de podologia por la infeccion que padece en el dedo estela del pie derecho. Stand Alone Forms: Work/School Release Interventions: ED Discharge Assessment Last Done: 03/15/25 12:24 Discharge Date/Time: 03/15/25 12:25 Print Language: [place] Citizen
--- OUTSIDE RECORDS SUMMARY | 2025-03-15 11:45 | XMS_ITS | Clinical Summary ---
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 90 each 1 10/28/19 25 Active albuterol HFA (ProAir HFA) 90 mcg/actuation inhalerIndicatio ns:Mild persistent asthma without complication Inhale 2 puffs by mouth every 4 (four) hours if needed for wheezing or shortness of breath. 8.5 g 1 03/12/20 25 Active fluticasone furoate (ARNUITY ELLIPTA) 100 mcg/actuation blister with device inhaler Inhale 1 puff by mouth 1 (one) time each day. 1 each 12 03/12/20 25 026 Active albuterol HFA (ProAir HFA) 90 mcg/actuation inhalerIndicatio ns:Mild intermittent asthma without complication Inhale 2 puffs by mouth every 4 (four) hours if needed for wheezing or shortness of breath. 8.5 g 04/11/20 24 025 Discontin ued(Reord er) bisacodyL (DULCOLAX) 5 mg EC tablet Take 2 tablets by mouth right before beginning bowel prep. See instructions provided by the office 2 tablet 12/19/19 25 025 Discontin ued(Thera py completed ) polyethylene glycol (Golytely) 236-22.74-6.74 -5.86 gram solution Take 4L by mouth once for one dose. May substitue any PEG. Starting at 2PM the day before your procedure drink 1 8oz glasses at your own pace until you complete half of the gallon. Finish 2nd half of the gallon at 8PM. 4000 mL 12/19/19 25 025 Discontin ued(Thera py completed ) Active Problems Problem Noted Date Diagnosed Date Mixed hyperlipidemia 04/11/2024 Tobacco use disorder 04/11/2024 Mild intermittent asthma without complication Prediabetes 04/11/2024 Tattoo of skin 08/01/2013 Anxiety disorder 06/20/2013 Bipolar disorder ([facility] V24, [facility] V28) 05/25 Insomnia 06/20/2013 Encounters Date Type Department Care Team Description 03/12/2025 9:30 AM EST Office Visit Adult Medicine [address] [phone] Carmenza Marquez PA Mild persistent asthma without complication (Primary Dx); Mixed hyperlipidemia; Prediabetes; Need for prophylactic vaccination and inoculation against influenza; Encounter for screening mammogram for malignant neoplasm of breast; Pap smear for cervical cancer screening 01/02/2025 Telephone Gastroenterology - [address] [phone] January Pearson [place] 01/01/2025 1:19 PM EDT Anesthesia Event [facility] Endoscopy [address] [place] [phone] Luke Wilcox MD 01/01/2025 12:14 PM EDT - 01/01/2025 11:59 PM EDT Hospital Encounter [facility] Endoscopy [address] [place] [phone] Marva Bravo MD Dasilva, John E, MD Colon cancer screening Discharge Disposition: Home or Self Care from Last 3 Months Immunizations Immunization Administration Dates Next Due Influenza trivalent, MDCK, 0 .5mL, preservative free (Flucelvax) 6mo and older 03/12/2025,04/29/2024 Pneumococcal conjugate 20 va lent (Prevnar 20, PCV 20) 2mo and older 04/29/2024 Tdap Tetanus diptheria acell ular pertussis (Boostrix; Adacel) 7yo and older 04/11/2024,08/01/2013 Surgical History Surgery Date Site/Laterality Comments TUBAL LIGATION SHOULDER SURGERY 04/23/2021 - 04/22/2022 Left Medical History Medical History Date Comments Bipolar disorder ([facility] V24, [facility] V28) Anxiety disorder Insomnia Tobacco use Hyperlipidemia Family History Medical History Relation Name Comments Diabetes Father HTN No Known Problems Maternal Grandfather ESRD Maternal Grandmother No Known Problems Mother killed, an emia No Known Problems Paternal Grandfather No Known Problems Paternal Grandmother ne urological condition? No Known Problems Sister Lung cancer Neg Hx Relation Name Status Comments Daughter 1 Alive [...] care for your loved ones. For example, children's author or elderly care for an older adult? [...] Start Date Job End Date works at [employer] Not on file Not on file Not [...] Mass Index 33.25 03/12/2025 9:22 AM EST Plan of Treatment Upcoming Encounters Date Type Department Care Team (Late st Contact Info) Description 04/29/2025 9:30 AM EST Office Visit Adult Medicine [facility] [address] [place], [place] [phone] Delon Rodarte MD [address], [place] Health Maintenance Due Date Last Done Comments Hepatitis B Vaccines (1 of 3 - 19+ 3-dose series) 1992 Breast Cancer Screening 09/18/2016 09/18/2014 Cervical Cancer Screening: P ap Smear 08/11/2017 08/11/2014, 08/11/2014 RSV Immunization Adult Patients (1 - Risk 50-74 years 1-dose series) 07/30/2023 Zoster Vaccines (1 of 2) 07/30/2023 COVID-19 Vaccine (1 - 2024-2 6 season) 2024 Social Influencers of Health Screening 04/11/2025 04/11/2024 Lung Cancer Screening (Low Dose CT) 11/27/2025 11/27/2024 Cholesterol Screening (Lipid Panel) 10/21/2029 10/21/2024, 04/11/2024, 08/01/2013 Colorectal Cancer Screening: Colonoscopy 01/02/2032 01/01/2025 DTaP,Tdap,and Td Vaccines (3 - Td or Tdap) 04/11/2034 04/11/2024, 08/01/2013 HIV Screening Completed 04/11/2024, 08/11/2014 Hepatitis C Screening Completed 04/11/2024 , 08/01/2013 Pneumococcal Vaccine: 50+ Years Completed 04/29/2024 Depression Screening Completed 03/12/2025 Influenza Vaccine Completed 03/12/2025, 04/29/2024 HIB Vaccines Aged Out No longer [...] Procedure Name Priority Date/Time Associated Diagnosis Comments COLONOSCOPY Routine 01/01/2025 1:32 PM EDT Colon cancer screening TISSUE EXAM Routine 01/01/2025 1:27 PM EDT Colon cancer screening CT LUNG SCREENING Routine 11/27/2024 3:4 5 PM EDT Encounter for screening for malignant neoplasm of respiratory organs Personal history of nicotine dependence LIPID PANEL WITH REFLEX TO DIRECT LDL Routine 10/21/2024 8:39 AM EDT Mixed hyperlipidemia HEPATITIS PANEL, ACUTE WITH REFLEX TO CONFIRMATION Routine 04/11/2024 9:23 AM EST Screening examination for STD (sexually transmitted disease) HIV 1, 2 ANTIBODY, P24 ANTIGEN WITH REFLEX TO DIFFERENTIATION Routine 04/11/2024 9:23 AM EST Screening examination for STD (sexually transmitted disease) HM HPV Routine 08/11/2014 from Last 3 Months or Most Recently Relevant to Health Maintenance Results * COLONOSCOPY Anesthesia - MAC; SP ENDOSCOPY (01/01/2025 1:32 PM EDT) Anatomical Region Laterality Modality Endoscopy 01/01/2025 1:18 PM EDT Impressions 01/01/2025 1:34 PM EDT - The examined portion of the ileum was normal. - One 2 mm polyp in the ascending colon, removed with a cold snare. Resected and retrieved. - Diverticulosis in the sigmoid colon. - Internal hemorrhoids. Recommendation: - Await pathology results. - Repeat colonoscopy in 7-10 years for surveillance. Narrative 01/01/2025 1:34 PM EDT [facility] GI Patient Name: Griffin Mace Procedure Date: 01/01/2025 1:18 PM Date of : 1975 Age: 49 Gender: Female Note Status: Finalized Attending MD: Marva Bravo MD, Procedure Date No Time: 01/01/2025 Procedure: Colonoscopy Indications: Screening for colorectal malignant neoplasm Providers: Marva Bravo MD Referring MD: KELSEY Napier Medicines: Propofol per Anesthesia Complications: No immediate complications. Estimated Blood Loss: Estimated blood loss: none. Procedure: Pre-Anesthesia Assessment: - ASA Grade Assessment: II - A patient with mild systemic disease. After I obtained informed consent, the scope was passed under direct vision. Throughout the procedure, the patient's blood pressure, pulse, and oxygen saturations were monitored continuously.The Colonoscope was introduced through the anus and advanced to the terminal ileum. The colonoscopy was performed without difficulty. The patient tolerated the procedure well. The quality of the bowel preparation was good. Findings: The perianal and digital rectal examinations were normal. The terminal ileum appeared normal. A 2 mm polyp was found in the ascending colon. The polyp was sessile. The polyp was removed with a cold snare. Resection and retrieval were complete. A few small-mouthed diverticula were found in the sigmoid colon. Internal hemorrhoids were found during retroflexion. The hemorrhoids were Grade I (internal hemorrhoids that do not prolapse). Procedure Code(s): --- Professional --- 33652, Colonoscopy, flexible; with removal of tumor(s), polyp(s), or other lesion(s) by snare technique Diagnosis Code(s): --- Professional --- Z12.11, Encounter for screening for malignant neoplasm of colon D12.2, Benign neoplasm of ascending colon CPT copyright 2020 [employer]. All rights reserved. The codes documented in this report are preliminary and upon postal carrier review may be revised to meet current compliance requirements. Marva Bravo MD 01/01/2025 1:33:54 PM This report has been signed electronically.Marva Bravo MD Number of Addenda: 0 Note Initiated On: 01/01/2025 1:18 PM Scope In: Scope Out: Endoscopy Department at [facility] - [address] [place] [phone] Procedure Note Marva Bravo MD - 01/01/2025 [facility] GI Patient Name: Griffin Mace Procedure Date: 01/01/2025 1:18 PM Date of : 1975 Age: 49 Gender: Female Note Status: Finalized Attending MD: Marva Bravo MD, Procedure Date No Time: 01/01/2025 Procedure: Colonoscopy Indications: Screening for colorectal malignant neoplasm Providers: Marva Bravo MD Referring MD: KELSEY Napier Medicines: Propofol per Anesthesia Complications: No immediate complications. Estimated Blood Loss: Estimated blood loss: none. Procedure: Pre-Anesthesia Assessment: - ASA Grade Assessment: II - A patient with mild systemic disease. After I obtained informed consent, the scope was passed under direct vision. Throughout theprocedure, the patient's blood pressure, pulse, and oxygen saturations were monitored continuously.The Colonoscope was introduced through the anus and advanced to the terminal ileum. The colonoscopy was performed without difficulty. The patient tolerated the procedure well. The quality of the bowel preparation was good. Findings: The perianal and digital rectal examinations were normal. The terminal ileum appeared normal. A 2 mm polyp was found in the ascending colon. The polyp was sessile. The polyp was removed with acold snare. Resection and retrieval were complete. A few small-mouthed diverticula were found in the sigmoid colon. Internal hemorrhoids were found duringretroflexion. The hemorrhoids were Grade I (internal hemorrhoids that do not prolapse). Procedure Code(s): --- Professional --- 34517, Colonoscopy, flexible; with removal of tumor(s), polyp(s), or other lesion(s) by snare technique Diagnosis Code(s): --- Professional --- Z12.11, Encounter for screening for malignantneoplasm of colon D12.2, Benign neoplasm of ascending colon CPT copyright 2020 [employer]. All rights reserved. The codes documented in this report are preliminary and upon postal carrier reviewmay be revised to meet current compliance requirements. Marva Bravo MD 01/01/2025 1:33:54 PM This report has been signed electronically.Marva Bravo MD Number of Addenda: 0 Note Initiated On: 01/01/2025 1:18 PM Scope In: Scope Out: Endoscopy Department at [facility] - [address] [place] [phone] IMPRESSION: - The examined portion of the ileum was normal. - One 2 mm polyp in the ascending colon, removedwith a cold snare. Resected and retrieved. - Diverticulosis in the sigmoid colon. - Internal hemorrhoids. Recommendation: - Await pathology results. - Repeat colonoscopy in 7-10 years forsurveillance. Marva Bravo MD GI~PROCEDURE ORDERABLES Final Result * Tissue exam (01/01/2025 1:27 PM EDT) Final Diagnosis Polyp, ascending colon, polypectomy: - Tubular adenoma (fragments). 01/02/2025 1:17 PM EDT [facility] Gross Description A. Large Intestine, Right/Ascend ing Colon, polypX1: Labeled polyp x 1 ascend colon . Received in formalin are four soft, cooper polypoid tissues ranging from 0.15 cm to 0.4 cm in greatest diameter, which are wrapped in paper and submitted in toto in one cassette, four pieces, multiple levels. TS 01/02/2025 1:17 PM EDT [facility] Disclaimer Unless otherwise specified, all tissue is 10% NB formalin fixed and paraffin embedded. 01/02/2025 1:17 PM EDT [facility] Tissue Ascending colon structure / Unknown 01/01/2025 1:27 PM EDT 01/01/2025 2:59 PM EDT Marva Bravo MD LAB PATHOLOGY ORDERABLES Final Result [facility] [address] [place] [address], * CT Lung Screening (11/27/2024 3:45 PM EDT) Anatomical Region Laterality Modality Chest Computed Tomogra phy 12/03/2024 7:54 AM EDT Impressions 12/03/2024 8:01 AM EDT No suspicious mass or nodule. LUNG RADS: Lung-RADS 1: NEGATIVE S Modifier (Significant or Potentially Significant Findings): None present No suspicious nonpulmonary findings. RECOMMENDATIONS: 12 month screening low dose CT -------- FINAL REPORT -------- Dictated By: Jason Meier Dictated Date: 12/03/2024 07:54 ET Assigned Physician: Jason Meier Reviewed and Electronically Signed By: Jason Meier Signed Date: 12/03/2024 08:01 ET Workstation ID: [id number] Transcribed By: Self Edit Transcribed Date: 12/03/2024 07:54 ET Narrative 12/03/2024 8:01 AM EDT EXAMINATION: CT CHEST WITHOUT CONTRAST LUNG CANCER SCREENING, LOW DOSE CLINICAL INFORMATION: Lung cancer screening. Former smoker. COMPARISON: None TECHNIQUE: Multidetector CT. Examination of the chest. Examination of the chest without IV contrast. Reformatting in the coronal and sagittal planes. Device: Lightspeed VCT DLP: 106 mGy-cm CTDI: 3.22 Dose optimization was performed including the use of low-dose iterative reconstruction technique with automatic exposure control based on patient size. Type of contrast: None Volume of IV contrast: None Volume of contrast discarded: 0 mL FINDINGS: LUNG: No abnormality of the trachea or mainstem bronchi. LUNG NODULES: There are no suspicious nodules or masses. OTHER PULMONARY: There are a few nonspecific linear dependent lower lung zone opacities which could be atelectasis. No honeycomb formation. MEDIASTINUM: There are no enlarged mediastinal or hilar lymph nodes. No suspicious abnormalities of the esophagus. CARDIAC: The heart is not enlarged. No pericardial fluid or thickening No coronary calcifications demonstrated. VASCULAR: There is no thoracic aortic aneurysm. The main pulmonary artery is normal caliber PLEURA: There is no pleural fluid or pneumothorax AXILLA/CHEST WALL: There are no enlarged axillary lymph nodes. No chest wall mass demonstrated. VISUALIZED UPPER ABDOMEN: There are at least 3 and likely more small low attenuating liver lesions. The largest abuts the ventral aspect of the left lobe. These are not fully characterized but might represent cysts. There is an approximately 0.4 cm nonobstructing left renal calculus. MUSCULOSKELETAL: No suspicious focal bony lesion demonstrated. Procedure Note Jason Meier MD - 12/03/2024 EXAMINATION: CT CHEST WITHOUT CONTRAST LUNG CANCER SCREENING, LOW DOSE CLINICAL INFORMATION: Lung cancer screening. Former smoker. COMPARISON: None TECHNIQUE: Multidetector CT. Examination of the chest. Examination of the chest without IV contrast. Reformatting in the coronal and sagittal planes. Device: Kiwigrid VCT DLP: 106 mGy-cm CTDI: 3.22 Dose optimization was performed including the use of low-dose iterativereconstruction technique with automatic exposure control based on patientsize. Type of contrast: None Volume of IV contrast: None Volume of contrast discarded: 0 mL FINDINGS: LUNG: No abnormality of the trachea or mainstem bronchi. LUNG NODULES: There are no suspicious nodules or masses. OTHER PULMONARY: There are a few nonspecific linear dependent lower lungzone opacities which could be atelectasis. No honeycomb formation. MEDIASTINUM: There are no enlarged mediastinal or hilar lymph nodes. Nosuspicious abnormalities of the esophagus. CARDIAC: The heart is not enlarged. No pericardial fluid or thickening No coronary calcifications demonstrated. VASCULAR: There is no thoracic aortic aneurysm. The main pulmonary arteryis normal caliber PLEURA: There is no pleural fluid or pneumothorax AXILLA/CHEST WALL: There are no enlarged axillary lymph nodes. No chestwall mass demonstrated. VISUALIZED UPPER ABDOMEN: There are at least 3 and likely more small lowattenuating liver lesions. The largest abuts the ventral aspect of theleft lobe. These are not fully characterized but might represent cysts.There is an approximately 0.4 cm nonobstructing left renal calculus. MUSCULOSKELETAL: No suspicious focal bony lesion demonstrated. IMPRESSION: No suspicious mass or nodule. LUNG RADS: Lung-RADS 1: NEGATIVE S Modifier (Significant or Potentially Significant Findings): Nonepresent No suspicious nonpulmonary findings. RECOMMENDATIONS: 12 month screening low dose [address] -------- FINAL REPORT -------- Dictated By: Jason Meier Dictated Date: 12/03/2024 07:54 ET Assigned Physician: Jason Meier Reviewed and Electronically Signed By: Jason Meier Signed Date: 12/03/2024 08:01 ET Workstation ID: [id number] Transcribed By: Self Edit Transcribed Date: 12/03/2024 07:54 ET us Jaz Gonzalez MD IM CT PROCEDURES Final Result * (ABNORMAL) Lipid panel with reflex to direct LDL (10/21/2024 8:39 AM EDT) Cholesterol 275(H) 0 - 200 mg/dL LAB CHEMISTRY METHOD 10/21/2024 11:29 AM EDT [facility] Triglycerides 147 0 - 150 mg/dL LAB CHEMISTRY METHOD 10/21/2024 11:29 AM EDT [facility] HDL 74 >=40 mg/dL LAB CHEMISTRY METHOD 10/21/2024 11:29 AM [facility] LDL Calculated 172(H) 0 - 100 mg/dL LAB CHEMISTRY METHOD 10/21/2024 11:29 AM [facility] VLDL Cholesterol Corey 29.4 mg/dL LAB CHEMISTRY METHOD 10/21/2024 11:29 AM [facility] Non HDL Chol. (LDL+VLDL) 201(H) <145 mg/dL LAB CHEMISTRY METHOD 10/21/2024 11:29 AM EDT [facility] Chol/HDL Ratio 3.7 0.0 - 4.4 LAB CHEMISTRY METHOD 10/21/2024 11:29 AM [facility] Blood Venous blood specimen / Unknown Venipuncture / Unknown 10/21/2024 8:39 AM EDT 10/21/2024 8:39 AM EDT us Delon Rodarte MD LAB BLOOD ORDERABLES F inal Result Performing Organization Address [facility]/ZIP Co de Phone Number [facility] [address] [place] [address], [place] [phone] * HIV 1,2 antibody, p24 antigen with reflex to differentiation (04/11/2024 9:23 AM EST) Pathologist [facility] HIV Combo AB/AG Negative Negative LAB CHEMISTRY METHOD 04/11/2024 1:55 PM EST [facility] Blood Venous blood specimen / Unknown Venipuncture / Unknown 04/11/2024 9:23 AM EST 04/11/2024 9:23 AM EST Narrative [facility] - 04/11/2024 1:55 PM EST This assay is a 4th generation assay allowing for earlier detection of HIV infection by detecting the presence of the HIV-1 p24 antigen as well as the traditional antibodies to HIV type 1 (including group O) and type 2. Use of a 4th generation assay is the current CDC recommendation for HIV screening. Carmenza LORENZO LAB BLOOD ORDERABLES Final Resul t Performing Organization Address [facility]/ZIP Co de Phone Number [facility] [address] [place] [address], [place] [phone] * Hepatitis panel, acute with reflex to confirmation (04/11/2024 9:23 AM EST) Pathologist [facility] Hepatitis B Surface Ag Negative Negative LAB CHEMISTRY METHOD 04/11/2024 2:02 PM EST [facility] Hepatitis A Antibody IgM Negative Negative LAB CHEMISTRY METHOD 04/11/2024 2:02 PM EST [facility] Hep B Core IgM Negative Negative LAB CHEMISTRY METHOD 04/11/2024 2:02 PM EST [facility] Hepatitis C Antibody Negative Negative LAB CHEMISTRY METHOD 04/11/2024 2:02 PM [facility] Blood Venous blood specimen / Unknown Venipuncture / Unknown 04/11/2024 9:23 AM EST 04/11/2024 9:23 AM EST us Carmenza Jimmy LORENZO LAB BLOOD ORDERABLES Final Resul t [facility] [address] [place] [address], [place] [phone] * Cervical Cancer Screening: HPV (08/11/2014) Pathologist [facility] Cervical Cancer Screening: HPV negative, abstracted us Historical Provider MD HEALTH MAINTENANCE Final Result from Last 3 Months or Most Recently Relevant to Health Maintenance Insurance [employer] MEDICA[employer] - [place] Care Teams 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
[2025-03-15 12:24] VITALS: BP 118/57; PULSE 83; RESP 16; TEMP 36.3; O2SAT 98
== END 2025-03-15 12:25 | disposition home or self-care (01) ==
PROVIDERS: Emergency Provider Emergency Medicine Emergency Medical Services
DX: L03.031 Cellulitis of right toe (principal); Z79.899 Other long term (current) drug therapy
CPT/HCPCS: 73630; 99282; 99283

== ENCOUNTER → 2025-03-15 11:10 | Outpatient (BNV) | payer OTHER, SELFPAY | PROVIDERS: Emergency Provider Emergency Medicine Emergency Medical Services; Visit Provider Radiology Vascular & Interventional Radiology | DX: S90.931A Unspecified superficial injury of right great toe, initial encounter (principal); M79.674 Pain in right toe(s) | CPT/HCPCS: 73630 ==

== ENCOUNTER 2025-03-24 08:40 | Outpatient (AMB) | payer OTHER, SELFPAY ==
--- OUTSIDE RECORDS SUMMARY | 2016-06-27 06:00 | XMS_ITS | Continuity of Care Document ---
Author Organization [facility] Address [address] [place] [address] Phone Care Team Providers Care Braille Coder Name Role Phone Marlene Tim Unavailable Unava ilable Allergies, Adverse Reactions, Alerts Substance Reaction Status Criticality No Known Allergies Active No Inform ation Procedures Procedure Date OFFICE/OUTPATIENT VISIT, [facility] Advance Directives Directive Yes / No Effective Date File Name No Information Encounters Encounter Description Practice Location Reason(s) For Visit Diagnoses Date Provider Providers Copied on Encounter OFFICE/OUTPAT IENT VISIT, [facility], [address] [place], , [id number], [place] tel:[phone] [facility] [place] [facility] Sebaceous cyst Nick Rosario. [address] [facility], [place], , [id number], [place]. tel:[phone] Family History Family Member Type Diagnosis Age At Onset Problem (finding) Family history of hyper tension Problem (finding) Family history of Diabe sandoval mellitus Payers Payer name Insurance type Covered green party ID Authoriza tion(s) No Information Social History Type Description Quantity Date Captured Comments Alcohol Use Details No Caffeine Use Details coffee and soda 16 oz per day Tobacco Use Status Light cigarette smok er (1-9 cigs/day) Smoking Status Light tobacco smoker Smoking Tobacco Use Details Cigarette: No Details Available Cigarette: 6 Cigarettes per day Sex Female Gender Identity Female Vital Signs Date / Time: Height Weight BMI Pulse Rate Blood Pressure Temperature Respiratory Rate Body Surface Area Head Circumference Head Circ. Percentile Wt./[place]. Percentile BMI percentile Pulse Ox Inhaled Ox 11:22 AM 61.00 in 73.301 kg (161.60 lbs) 30.5 3 kg/m eter (2) 66 /min 89/58 mm[Hg] 98.30 F 16 /min 1.78 meter(2) 99 % 21 % Chief Complaint And Reason For Visit No Information Reason For Referral Reason For Referral No Information History Of Present Illness Encounter Date Complaint History Of Prese nt Illness No Information Functional Status Date Functional Assessmen t Pain Score 0/10 Instructions Date Instruction Additional Infor mation No Information Assessments Type Assessment Date No Information Mental Status Date Cognitive Assessment Orientation - [place] ed to time, place, person, situation. Patient Care Teams Name Effective Dates (start - stop) Status Members No Information
--- OUTSIDE RECORDS SUMMARY | 2025-03-24 08:50 | XMS_ITS | Clinical Summary ---
Author Organization [address] Address [address] [place] [phone] Phone Care Team Providers Care Front Desk Team Member Name Role Phone Delon Rodarte MD Primary [...] skin 08/01/2013 Anxiety disorder 06/20/2013 Bipolar disorder ([facility] V24, [facility] V28) 05/25 Insomnia 06/20/2013 Encounters Date Type Department Care Team Description 03/12/2025 9:30 AM EST Office Visit Adult Medicine [address] [phone] Carmenza Marquez PA Mild persistent asthma without complication (Primary Dx); Mixed hyperlipidemia; Prediabetes; Need for prophylactic vaccination and inoculation against influenza; Encounter for screening mammogram for malignant neoplasm of breast; Pap smear for cervical cancer screening 01/02/2025 Telephone Gastroenterology - [address] [phone] January Pearson MA 01/01/2025 1:19 PM EDT Anesthesia Event [facility] Endoscopy [address] [place] [phone] Luke Wilcox MD 01/01/2025 12:14 PM EDT - 01/01/2025 11:59 PM EDT Hospital Encounter [facility] Endoscopy [address] [place] [phone] Marva Bravo MD Dasilva, John E, MD [...] History Medical History Date Comments Bipolar disorder ([facility] V24, [facility] V28) Anxiety disorder Insomnia Tobacco use [...] your loved ones. For example, child care lead teacher or elderly care for an older adult? [...] Start Date Job End Date works at [employer] Not on file Not on file Not [...] 9:30 AM EST Office Visit Adult Medicine [facility] [address], [place] [phone] Delon Rodarte MD [address] [place], [place] Health Maintenance Due Date Last Done Comments Hepatitis B Vaccines (1 of 3 - 19+ 3-dose series) 1992 Breast Cancer Screening 09/18/2016 09/18/2014 Cervical Cancer Screening: P ap Smear 08/11/2017 08/11/2014 RSV Immunization Adult Patients (1 - [...] examination for STD (sexually transmitted disease) HM PAP SMEAR Routine 08/11/2014 from Last 3 Months or [...] for surveillance. Narrative 01/01/2025 1:34 PM EDT [facility] GI Patient Name: Griffin Mace Procedure Date: [...] not prolapse). Procedure Code(s): --- Professional --- 66993, Colonoscopy, flexible; with removal of tumor(s), polyp(s), or other lesion(s) by snare technique Diagnosis Code(s): --- Professional --- Z12.11, Encounter for screening for malignant neoplasm of colon D12.2, Benign neoplasm of ascending colon CPT copyright 2020 [employer]. All rights reserved. The codes documented in this report are preliminary and upon director of rotc review may be revised to meet current compliance requirements. Marva Bravo MD 01/01/2025 1:33:54 PM This report has been signed electronically.Marva Bravo MD Number of Addenda: 0 Note Initiated On: 01/01/2025 1:18 PM Scope In: Scope Out: Endoscopy Department at [facility] - [address] [place] [phone] Procedure Note Marva Bravo MD - 01/01/2025 [facility] GI Patient Name: Griffin Mace Procedure Date: [...] not prolapse). Procedure Code(s): --- Professional --- 74223, Colonoscopy, flexible; with removal of tumor(s), polyp(s), or other lesion(s) by snare technique Diagnosis Code(s): --- Professional --- Z12.11, Encounter for screening for malignantneoplasm of colon D12.2, Benign neoplasm of ascending colon CPT copyright 2020 [employer]. All rights reserved. The codes documented in this report are preliminary and upon director of rotc reviewmay be revised to meet current compliance requirements. Marva Bravo MD 01/01/2025 1:33:54 PM This report has been signed electronically.Marva Bravo MD Number of Addenda: 0 Note Initiated On: 01/01/2025 1:18 PM Scope In: Scope Out: Endoscopy Department at [facility] - [address] [place] [phone] IMPRESSION: - The examined portion of the [...] Tubular adenoma (fragments). 01/02/2025 1:[address] [facility] at 1317 EDT Gross Description A. Large Intestine, Right/Ascend ing Colon, polypX1: Labeled polyp x 1 ascend colon . Received in formalin are four soft, cooper polypoid tissues ranging from 0.15 cm to 0.4 cm in greatest diameter, which are wrapped in paper and submitted in toto in one cassette, four pieces, multiple levels. TS 01/02/2025 1:[address] [facility] Disclaimer Unless otherwise specified, all tissue is 10% NB formalin fixed and paraffin embedded. 01/02/2025 1:[address] [facility] Tissue Ascending colon structure / Unknown 01/01/2025 1:27 PM EDT 01/01/2025 2:59 PM EDT Marva Bravo MD LAB PATHOLOGY ORDERABLES Final Result [facility] [address] [place] [address], * CT Lung Screening (11/27/2024 3:45 PM [...] Signed Date: 12/03/2024 08:01 ET Workstation ID: [id number] Transcribed By: Self Edit Transcribed Date: 12/03/2024 [...] in the coronal and sagittal planes. Device: Circlezon VCT DLP: 106 mGy-cm CTDI: 3.22 Dose [...] Signed Date: 12/03/2024 08:01 ET Workstation ID: [id number] Transcribed By: Self Edit Transcribed Date: 12/03/2024 07:54 ET us Jaz Gonzalez MD IM CT PROCEDURES Final Result * (ABNORMAL) Lipid panel with reflex to direct LDL (10/21/2024 8:39 AM EDT) Cholesterol 275(H) 0 - 200 mg/dL LAB CHEMISTRY METHOD 10/21/2024 11:[address] [facility] Triglycerides 147 0 - 150 mg/dL LAB CHE[facility]STRY METHOD [facility] HDL 74 >=40 mg/dL LAB CHEMISTRY METHOD 10/21/2024 11:[address] [facility] LDL Calculated 172(H) 0 - 100 mg/dL LAB CHEMISTRY METHOD 10/21/2024 11:29 AM [facility] VLDL Cholesterol Corey 29.4 mg/dL LAB CHEMISTRY METHOD 10/21/2024 11:29 AM [facility] Non HDL Chol. (LDL+VLDL) 201(H) <145 mg/dL LAB CHEMISTRY METHOD 10/21/2024 11:[address] [facility] Chol/HDL Ratio 3.7 0.0 - 4.4 LAB CHEMISTRY METHOD 10/21/2024 11:29 AM [facility] Blood Venous blood specimen / Unknown Venipuncture / Unknown 10/21/2024 8:39 AM EDT 10/21/2024 8:39 AM EDT us Delon Rodarte MD LAB BLOOD ORDERABLES F inal Result Performing Organization Address [facility]/ZIP Co de Phone Number [facility] [address] [place] [address], * HIV 1,2 antibody, p24 antigen with reflex to differentiation (04/11/2024 9:23 AM EST) Pathologist [facility] HIV Combo AB/AG Negative Negative LAB CHEMISTRY METHOD 04/11/2024 1:[address] [facility] Blood Venous blood specimen / Unknown Venipuncture / Unknown 04/11/2024 9:23 AM EST 04/11/2024 9:[address] [facility] - 04/11/2024 1:55 PM EST This assay is a 4th generation assay allowing for earlier detection of HIV infection by detecting the presence of the HIV-1 p24 antigen as well as the traditional antibodies to HIV type 1 (including group O) and type 2. Use of a 4th generation assay is the current CDC recommendation for HIV screening. us Carmenza LORENZO LAB BLOOD ORDERABLES Final Resul t Performing Organization Address [facility]/ZIP Co de Phone Number [facility] [address] [place] [address], [place] [phone] * Hepatitis panel, acute with reflex to confirmation (04/11/2024 9:23 AM EST) Pathologist [facility] Hepatitis B Surface Ag Negative Negative LAB CHEMISTRY METHOD 04/11/2024 2:[address] [facility] Hepatitis A Antibody IgM Negative Negative LAB CHEMISTRY METHOD 04/11/2024 2:[address] [facility] Hep B Core IgM Negative Negative LAB CHEMISTRY METHOD 04/11/2024 2:02 PM [facility] Hepatitis C Antibody Negative Negative LAB CHEMISTRY METHOD 04/11/2024 2:[address] [facility] Blood Venous blood specimen / Unknown Venipuncture / Unknown 04/11/2024 9:23 AM EST 04/11/2024 9:23 AM EST Carmenza Jimmy LORENZO LAB BLOOD ORDERABLES Final Resul t [facility] [address] [place] [address], [place] [phone] * Pap Smear (08/11/2014) Pap smear negative, abstracted Historical Provider HEALTH MAINTENANCE Final Result from Last 3 Months or Most Recently Relevant to Health Maintenance Insurance [employer] [place]ICA[employer] - [place] Care Teams Front Desk Team Member Relationship Specialty Start Date End Date Delon Rodarte MD [address] [place] [phone] PCP - General Internal Medicine 11/23/23
[2025-03-24 09:06] VITALS: BMI 33.3
--- NOTE | 2025-03-24 09:06 | A.OFFVIS_ITS ---
Vital Signs 03/24/25 09:06 Height 5 ft 1 in Weight 176 lb BMI 33.3 Intake Visit Reasons: right toe pain/Infected on antibiotics Intake Note: Griffin is a 49 year old female who presents today as a new patient for an evaluation of her right hallux pain and infection. Patient reports that this has started about 2-3 weeks ago and she completed course of antibiotics that was prescribed to her by the ED. She mentions she had a shopping cart ran over her toe and she also mentions when she cut her nails the skin comes off as well and she not sure which incident caused her toe to hurt. She has concerns of a fungus on her left hallux and callous in between her 4th and 5th toe of the left foot. Allergies No Known Allergies Allergy (Verified 03/24/25 09:07) Medication List - Last Reconciled 03/24/25 by Sharda Pearson DPM acetaminophen 500 mg PO Q6H PRN albuterol sulfate 2.5 mg (3 mL) inhalation Q4-6H PRN cephalexin 500 mg PO Q6H 7 days ciclopirox 8% 1 appl topical BEDTIME 4 weeks peg 3350-electrolytes 236-22.74-6.74 -5.86 gram (Golytely) 240 mL PO Q10M prednisone 40 mg (2 x 20 mg) PO DAILY HPI Comments Details: The patient is a 49 year old individual with a past medical history as seen below presenting for a left hallux fungal nail and callus to the left foot.The problem may have started after the patient cut her nails or after hitting the toe with a supermarket cart. Pus was observed on the toe last Sunday after being hit by a shopping cart approximately 2-3 weeks ago. Patient was prescribed Keflex which she completed. She denies any recent sightings or purulence. Additionally, the patient has had a callus on the foot for years in between the left 4th and 5th toes. The patient experiences pain when the callus, which has a core, pushes against the adjacent toe. The patient denies any pus or bleeding from the callus. She denies any other pedal concerns. [facility] Medical History (Updated 03/26/25 @ 10:42 by Sharda Pearson DPM) Pain in left toe(s) Intractable plantar keratosis Other specified epidermal thickening Nail disorder Nail dystrophy Tinea unguium Review of Systems Const Details: - Integumentary: Reports a history of purulent drainage from left hallux after an injury. - Reports chronic nail discoloration and a callus on the left foot. - Denies current drainage, pus, or bleeding from the callus. - Musculoskeletal: Denies pain with pressure to the left hallux - Reports pain from the callus when it pushes against the other toe. All systems reviewed & are unremarkable except as noted in HPI and below Physical Exam Vital Signs: BMI result Body Mass Index 33.3 Extrem Other: B/L lower extremity focused physical exam: Derm: Increased discoloration, thickness, dystrophic appearance to toenails x10 worse to the left hallux. Hyperkeratotic lesion noted to the lateral border of the 4th left toe. No active drainage, purulence, or bleeding noted. Skin supple and turgor within normal limits. No clinical signs of infection noted. Vascular: DP/PT pulses palpable. Capillary refill time less than 3 seconds. Temperature gradient warm to warm. No varicosities noted. No edema noted. Neuro: Protective sensation is grossly intact. MSK: Pain on palpation to the hyperkeratotic area of the left foot. Range of motion of the forefoot, hindfoot, and ankles within normal limits. No crepitus or fluctuance noted. No gross abnormalities noted. Nonantalgic gait unassisted noted. Office Procedures AMB Debridement/Avulsion Podia Details: Debrided toenails x10 using a sterile dremel and debrided the hyperkeratotic lesion on the left foot using a sterile #15 blade without incidents. 51785-Inngqfyqkao of Nail 6+ 10061-Vxgnndnmqbe of Callus (1) Procedure code (CPT) selection complete Assessment & Plan Assessment & Plan (1) Nail disorder: Code(s): L60.9 - Nail disorder, unspecified Category: Medical (2) Nail dystrophy: Code(s): L60.3 - Nail dystrophy Category: Medical (3) Tinea unguium: Code(s): B35.1 - Tinea unguium Category: Medical (4) Other specified epidermal thickening: Code(s): L85.8 - Other specified epidermal thickening Category: Medical (5) Intractable plantar keratosis: Code(s): L84 - Corns and callosities Category: Medical (6) Pain in left toe(s): Code(s): M79.675 - Pain in left toe(s) Category: Medical Plan Patient was informed and verbally consented to the use of an ambient scribe for clinic note documentation during this visit. I discussed the treatment options for the patient's nail discoloration, likely due to a fungal infection. I explained that a topical korean could be used daily, but it would take about a year to see a noticeable difference. The alternative is an oral medication that works over three to four months but requires lab work to monitor liver function. The patient preferred to start with the korean, and I sent a prescription for Ciclopirox to the patient's pharmacy. I explained that the callus has a central core that causes pain when it pushes against the adjacent toe. I informed the patient that calluses tend to recur and advised applying a thick cream like Vaseline after it is shaved to help manage it. The nails were filed down during the visit, and I advised a follow-up in one month. - The callus on the left fourth digit was debrided, and all ten toenails were debrided with a Dremel to reduce thickness. - For management of the callus, the patient is advised to apply a thick cream, such as Vaseline, to the area. - For onychomycosis, a prescription for Ciclopirox topical solution was sent to the patient's pharmacy. - The patient was instructed to apply the Ciclopirox daily and to file the nail between each application to enhance penetration. - Advised patient to keep feet clean and dry. - Advised patient to wear shoes with a wide toe box and avoid barefoot walking while also wearing supportive shoe gear. RTC in 1 month. Orders: Orders AMB Debridement/Avulsion Podiatry 03/24/25 B35.1 - Tinea unguium, L60.3 - Nail dystrophy, L60.9 - Nail disorder, unspecified, L84 - Corns and callosities, L85.8 - Other specified epidermal thickening, M79.675 - Pain in left toe(s) Medications: New ciclopirox 8% 1 appl topical BEDTIME 6.6 mL 0RF 4 weeks B35.1 - Tinea unguium, L60.3 - Nail dystrophy, L60.9 - Nail disorder, unspecified Coding Level of Care Code New Pt Level 4 (14705) Diagnoses Nail disorder L60.9 Nail dystrophy L60.3 Tinea unguium B35.1 Other specified epidermal thickening L85.8 Intractable plantar keratosis L84 Pain in left toe(s) M79.675 CPT Codes Skin Debridement - CPT: 73741-Ssxlufmmull of Nail 6+ ([id number]) Skin Debridement - CPT: 80222-Ijsccbhujlf of Callus (1) ([id number]) Time Spent (min) 58 Comment 13 mins for procedure
== END 2025-03-24 09:30 | disposition home or self-care (01) ==
LOC: HO.HPODS 08:41
PROVIDERS: Visit Provider Student in an Organized Health Care Education/Training Program
DX: L60.3 Nail dystrophy (principal); B35.1 Tinea unguium; L85.8 Other specified epidermal thickening; L84 Corns and callosities; M79.675 Pain in left toe(s)
CPT/HCPCS: 11055; 11721; 99204

== ENCOUNTER → 2025-03-24 08:40 | Outpatient (BNVA) | payer OTHER, SELFPAY | PROVIDERS: Visit Provider Student in an Organized Health Care Education/Training Program | DX: L60.9 Nail disorder, unspecified (principal); L60.3 Nail dystrophy; B35.1 Tinea unguium; L85.8 Other specified epidermal thickening; L84 Corns and callosities; M79.675 Pain in left toe(s); L85.1 Acquired keratosis [keratoderma] palmaris et plantaris | CPT/HCPCS: 11055; 11721 ==

== ENCOUNTER 2025-04-15 12:53 | Emergency (ER) | payer OTHER, SELFPAY ==
[2025-04-15 13:12] VITALS: BP 110/72; PULSE 92; RESP 16; TEMP 37.4; O2SAT 99; BMI 33.3
--- NOTE | 2025-04-15 13:13 | ED_ITS ---
HPI - General Adult General Chief complaint: Urogenital-Female Stated complaint: blood in urine Time Seen by Provider: 04/15/25 15:44 Source: patient and management intern (all interactions with this patient were facilitated with an [facility] hospitality job titles (Fiorella)) Mode of arrival: ambulatory Limitations: language barrier (all interactions with this patient were facilitated with an [facility] hospitality job titles (Fiorella)) History of Present Illness ED Provider: Marce Joseph PA-C HPI narrative: Patient is a 49 year old female with no reported medical history presenting to the emergency department today with painful urination and blood in her urine. Patient states that over the last day she has felt generally unwell with painful urination and blood in her urine. Patient denies any other complaints at this time. Related Data Previous Rx's ?Medication ?Instructions ?Recorded acetaminophen 500 mg capsule 500 mg PO Q6H PRN fever o r pain 02/04/24 #20 caps peg 3350-electrolytes 236 240 ml PO Q10M colonoscopy # 4,000 03/31/24 gram-22.74 gram-6.74 gram-5.86 mL gram solution (Golytely) albuterol sulfate 2.5 mg/3 mL 2.5 mg (3 mL) inhalation Q4-6H PRN 08/06/24 (0.083 %) solution for nebulization shortness of breat h or wheezing #75 mL prednisone 20 mg tablet 40 mg (2 x 20 mg) PO DAILY # 8 tabs 08/06/24 cephalexin 500 mg capsule 500 mg PO Q6H 7 days #28 cap s 03/15/25 ciclopirox 8 % topical solution 1 appl topical BEDTIME 4 weeks 03/24/25 #6.6 mL cefuroxime axetil 500 mg tablet 500 mg PO BID 7 days # 14 tabs 04/15/25 Allergies Allergy/AdvReac Type Severity Reaction Status Date / Time No Known Allergies Allergy Verified 04/15/25 13:13 Review of Systems 2 Constitutional: Constitutional: Reports as per HPI Eyes: Eyes: Reports as per HPI ENT: Reports as per HPI Cardiovascular: Cardiovascular: Reports as per HPI Respiratory: Respiratory: Reports as per HPI Gastrointestinal: Gastrointestinal: Reports as per HPI Genitourinary: Genitourinary: Reports as per HPI Musculoskeletal: Musculoskeletal: Reports as per HPI Integumentary/Breasts: Skin/Breast: Reports as per HPI Neurologic: Reports as per HPI Psychiatric: Psychiatric: Reports as per HPI Endocrine: Endocrine: Reports as per HPI Hematologic/Lymphatic: Hematologic/Lymphatic: Reports as per HPI Allergic/Immunologic: Allergic/Immunologic: Reports as per HPI [facility] Past Medical History Attestation statement: The following information was validated with the patient. Source: old records reviewed and nursing notes reviewed Medical History Pain in left toe(s) Intractable plantar keratosis Other specified epidermal thickening Nail disorder Nail dystrophy Tinea unguium Social History Social History Advance Directives: No Advance Directives Information Provided: No Physical Exam ED Vital Signs: Vital Signs - 24 hr 04/15/25 13:12 04/15/25 16:40 Temperature 99.3 F 98.9 F Pulse Rate 92 78 Respiratory Rate 16 16 Blood Pressure 110/72 116/66 Pulse Oximetry 99 98 Oxygen Delivery Method Room Air Room Air BMI result Body Mass Index 33.3 Const General: cooperative, no acute distress, alert and awake Nutritional Appearance: well nourished Orientation/consciousness: patient oriented x3 HENMT Head: Yes normal to inspection and Yes atraumatic Ears: hearing grossly normal bilaterally and external ears normal General nose exam: Normal external nose present, no nasal discharge noted and no epistaxis Face and sinus: Yes normal facial exam, No abrasion and No laceration Mouth: Normal oral and palatal mucosa present, no drooling and no muffled voice Eyes General: appearance normal, both eyes and all related structures Periorbital: periorbital findings normal Eyelids: Yes eyelids normal Conjunctivae: conjunctivae normal Pupils: Equal, round and reactive pupils present EOM: EOMs intact bilaterally Neck Neck: Yes normal visual inspection and Yes full ROM Resp Effort & Inspection: normal respiratory effort and able to speak in complete sentences Neuro General: patient oriented x3, moves all extremities and CN's II-XI intact bilaterally Cranial nerves: Yes Equal, round and reactive pupils present Cognition (Neuro): normal cognition Extrem General: Yes normal to inspection, Yes full ROM and Yes capillary refill normal Psych Appearance: grossly normal Mental Status: mental status grossly normal Affect: normal affect Attitude: cooperative Thought process: Normal thought process present Thought content: Normal thought content present Insight: Good insight present (Psych) Course Course Course Narrative: This is a rapid medical exam performed by Harrison Spencer NP: Additional HPI, ROS, PE not included below will be deferred to primary provider. Patient is a 49y/o F presenting with dysuria and hematuria since this morning. Subjective fevers. Plan: labs, UA Medications Administered Discontinued Medications Generic Name Dose Route Start Last Admin Trade Name Freq PRN Reason Stop Dose Admin Cefuroxime Axetil 500 mg 04/15/25 16:11 04/15/25 16:32 Cefuroxime Axetil 500 Mg Tablet PO 04/15/25 16:12 500 mg ONCE ONE Administration Ketorolac Tromethamine 15 mg 04/15/25 16:11 04/15/25 16:32 Ketorolac Tromethamine 15 Mg/Ml Vial IM 04/15/25 16:12 15 mg ONCE ONE Administration Medical Decision Making Medical Decision Making [facility] Narrative: Patient is a 49 year old female with no reported medical history presenting to the emergency department today with painful urination and blood in her urine. Patient's physical exam was as noted in the physical exam portion of this note. Patient's blood work showed a WBC count of 13.8 but otherwise unremarkable. Patient's urine showed evidence of an acute infection. Patient's clinical presentation is most consistent with UTI. I explained my physical exam findings as well as all test results to the patient. I answered all questions asked by the patient. Patient was able to tolerate PO while in the department and was afebrile. I stressed the importance of the patient taking her medication as directed (either prescribed or as the over the counter packaging recommends). I stressed the importance of the patient following up with her primary care provider. I stressed the importance of the patient returning to the emergency department immediately if her symptoms were to worsen or if she were to develop any dizziness, shortness of breath, difficulty breathing, chest pain, blurry vision, loss of vision, nausea, vomiting, abdominal pain, fever, chills, back pain, or any other complaints. Patient verbalized agreement and understanding with this treatment plan and discharge. Differential Diagnosis Differential Diagnoses: The differential diagnosis associated with the presentation includes UTI Pyelonephritis Admission/Observation Consideration of admission/observation: Escalation of care including admission/observation considered Patient would have been admitted to the hospital had her work up had any findings where hospital admission was appropriate and her clinical presentation warranted hospital admission. Lab Data [facility] Lab Attestation statement: I reviewed the patient's lab results. My interpretation of these results are in the MDM Rationale portion of this note. 04/15/25 13:30 04/15/25 13:30 Labs: Lab Results 04/15/25 Range/Units 13:30 WBC 13.8 H (4.8-10.8) X10*3/uL RBC 4.16 L (4.20-5.50) X10*6/uL Hgb 11.9 L (12.0-16.0) g/dl Hct 36.8 L (37.0-47.0) % MCV 88.5 (80.0-98.0) fL MCH 28.6 (27.0-33.0) pg MCHC 32.3 (31.0-35.0) g/dl RDW 13.9 (11.0-16.0) % Plt Count 313 (160-400) X10*3/uL MPV 9.4 (9.4-12.3) fL Immature Gran % (Auto) 0.4 (0.0-0.4) % Neut % (Auto) 85.4 H (45-73) % Lymph % (Auto) 8.8 L (20-40) % [place] % (Auto) 5.2 (2-11) % Eos % (Auto) 0.0 (0-4) % Baso % (Auto) 0.2 (0-2) % Lymph # (Auto) 1.2 (1.2-4.9) X10*3/uL [place] # (Auto) 0.7 (0.1-1.2) X10*3/uL Eos # (Auto) 0.0 (0.0-0.4) X10*3/uL Baso # (Auto) 0.0 (0.0-0.2) X10*3/uL Abs Immat Gran (auto) 0.05 H (0.00-0.03) X10*3/uL Absolute Neuts (auto) 11.8 H (2.0-8.3) x10*3/uL Absolute Nucleated RBC 0.000 (0.0-0.012) X10*3/uL Nucleated RBC % (auto) 0.0 (0.0-0.2) /100WBC Sodium 137 (135-145) mmol/L Potassium 3.6 (3.3-5.1) mmol/L Chloride 107 (96-108) mmol/L Carbon Dioxide 21 L (22-29) mmol/L Anion Gap 13 (12-20) BUN 11 (9-16) mg/dL Creatinine 0.84 (0.5-1.4) mg/dL Estim Creat Clear Calc 75.7 Estimated GFR > 60 Random Glucose 111 (60-115) mg/dL Calcium 9.3 (8.4-10.2) mg/dL Total Bilirubin 0.6 (0.0-1.0) mg/dL AST 28 (5-31) U/L ALT 19 (0-31) U/L Alkaline Phosphatase 72 (39-117) U/L Total Protein 7.4 (6.5-8.0) g/dL Albumin 4.4 (3.5-5.0) g/dL Urine Color Other A Urine Appearance Cloudy Urine pH 7.0 (5.0-9.0) Ur Specific [place] 1.020 (1.005-1.025) Urine Protein 300 (3+) H (Neg-Trace) mg/dL Urine Glucose (UA) Negative (Negative) mg/dL Urine Ketones Negative (Negative) mg/dL Urine Blood Large (3+) H (Negative) Urine Nitrite Positive H (Negative) Ur Leukocyte Esterase Moderate (2+) H (Negative) Urine RBC >20 H (0-2) /HPF Urine WBC 6-10 (0-5) /HPF Ur Squamous Epith Cells 0-2 (0-2) /HPF Urine Bacteria 1+ (None Seen) Hyaline Casts 0-2 (0-2) /LPF Tests considered The following testing was considered but not selected: I considered obtaining a CT of the abdomen/pelvis however, the patient's current clinical presentation did not warrant it at this time. Prescription Management I considered prescription management with: Antibiotic (patient prescribed an antibiotic for UTI) Discharge Plan Discharge Clinical Impression: Urinary tract infection Patient Disposition: Home, Self-Care Instructions: Urinary Tract Infection in Women (DC) Additional Instructions: Your urine showed evidence of infection. Take your antibiotic as prescribed. Cruz orina mostr? signos de infecci?n. [place] el antibi?griffin seg?n lo prescrito. IF you are prescribed home medications and/or you are taking over the counter medications at home - it is very important you continue to do so as prescribed / directed unless told otherwise. SI le recetan medicamentos y/o est? tomando medicamentos de venta lore, es muy importante que contin?e haci?ndolo seg?n lo recetado/indicado a menos que le indiquen lo contrario. Follow up with your primary care provider. Return to the emergency department immediately if your symptoms worsen or if you develop any dizziness, shortness of breath, difficulty breathing, chest pain, blurry vision, loss of vision, nausea, vomiting, abdominal pain, fever, chills, back pain, or any other complaints. Micah?seguimiento?con cruz m?dico de atenci?n primaria. Acuda inmediatamente al servicio de urgencias si juliana s?ntomas empeoran o si presenta falta de aliento, dificultad para respirar, dolor tor?cico, mareos, aturdimiento, dolor de espalda, dolor abdominal, fiebre, escalofr?os o cualquier otro s?ntoma. If you do not have a primary care provider - call any of the below numbers to establish and follow up with a primary care provider. Si no tiene un proveedor de atenci?n primaria, llame a cualquiera de los n?meros que aparecen a continuaci?n para establecer y hacer seguimiento con un proveedor de atenci?n primaria. [facility] Primary Care (Patience) [phone] [address] [facility], [address] [facility] Primary Care ([address] [place] [address]) [phone] [place] [address] Drive, [address] [place], [address] [facility] Primary Care ([address]) [phone] [place] [address], [address] [place], [address] [facility] Primary Care ([place]) [phone] [place] [address], [address] [place], [address] [facility] Family Medicine [phone] [place] [address], [address] Please see the information below about our Patient Portal. If you are not yet enrolled in the [facility] Patient Portal, you will receive an enrollment email invitation following your visit to any [facility] care setting. You may also self-enroll in the Patient Portal by visiting our website: [email or web address] The following information is required to access the Patient Portal: - Your [facility] Medical Record Number - Your personal home email address (must match what is in your electronic medical record, Registration staff can assist with this) - Name - Date of Capabilities of the Patient Portal: - Message some providers - View upcoming appointments - Access your health summary, medical history, and visit history - View current conditions and allergies - View procedure and lab results - View your medications, including guidelines, side effects, and precautions - Complete pre-appointment questionnaires requested by your provider - Ready summary reports of your office visits and procedures To access the Patient Portal Mobile John, follow these directions: - Search Bubble [employer] Balm in the John Store or Google Trunity Store - Download the John - Search for [facility] - Enter your login/password Portal del paciente Si usted no esta inscrito en el portal de pacientes de [facility], recibira jazmín invitacion de inscripcion despues de cruz visita al [facility] o al [facility] via correo electronico. Tambien puede inscribirse voluntariamente en el portal de pacientes visitando nuestra pagina web: [email or web address] La siguiente informacion sera requerida para acceder al portal: - Cruz junito de historia medica de [facility] - Cruz direccion de correo electronico personal - Nombre - Fecha de nacimiento Capacidades: Las siguientes capacidades estan disponibles en el portal de pacientes: - Enviar mensajes a algunos doctores - Verificar proximas citas - Acceso a cruz historial de sonali, registro medico e historial de visitas - Tracy las condiciones actuales y alergias tracy procedimientos y resultados del laboratorio - Tracy juliana medicamentos, incluyendo las pautas - Efectos secundarios y precauciones - Completar o llenar formularios / cuestionarios de - Citas solicitadas por cruz doctor - Leer los resumenes de reportes medicos de juliana visitas y procedimientos Fowler acceder a la aplicacion movil: - [employer] en la John Store o Google Trunity Store - Descargue la aplicacion - [facility] - Ingrese cruz nombre de usuario / Contrasena Prescriptions: New cefuroxime axetil 500 mg tablet 500 mg PO BID 7 Days Qty: 14 0RF No Action albuterol sulfate 2.5 mg /3 mL (0.083 %) solution for nebulization 2.5 mg inhalation Q4-6H PRN (Reason: shortness of breath or wheezing) Qty: 75 0RF prednisone 20 mg tablet 40 mg PO DAILY Qty: 8 0RF cephalexin 500 mg capsule 500 mg PO Q6H 7 Days Qty: 28 0RF acetaminophen 500 mg capsule 500 mg PO Q6H PRN (Reason: fever or pain) Qty: 20 0RF peg 3350-electrolytes [Golytely] 236-22.74-6.74 -5.86 gram recon soln 240 ml PO Q10M Qty: 4000 0RF Rx Instructions: as per split prep instructions, until fecal effluent is clear ciclopirox 8 % solution 1 appl topical BEDTIME 28 Days Qty: 6.6 0RF Referrals: Group,[facility] [Primary Care Provider, Primary Care] Interventions: ED Discharge Assessment Last Done: 04/15/25 16:40 Discharge Date/Time: 04/15/25 16:42 Print Language: Czech
[2025-04-15 13:35] LABS: MANUAL DIFF FLAG NO
[2025-04-15 13:36] LABS: Appearance Urine Cloudy; Glucose Urine UA Negative (Negative); PH 7.0 (5.0-9.0); Specific Gravity - Urine 1.020 (1.005-1.025); UMIC TRIGGER UACC YES
[2025-04-15 13:38] LABS: Hematocrit 36.8 % (37.0-47.0); Hemoglobin 11.9 g/dl (12.0-16.0); Imm Gran Abs Auto 0.05 X10*3/uL (0.00-0.03); Imm Gran Pct Auto 0.4 % (0.0-0.4); Lymphocytes Absolute Auto 1.2 X10*3/uL (1.2-4.9); Mean Corpuscular HGB Conc 32.3 g/dl (31.0-35.0); Mean Corpuscular Hemoglobin 28.6 pg (27.0-33.0); Mean Corpuscular Volume 88.5 fL (80.0-98.0); NRBC Abs Auto 0.000 X10*3/uL (0.0-0.012); NRBC Pct Auto 0.0 /100WBC (0.0-0.2); Platelet Count 313 X10*3/uL (160-400); Red Blood Count 4.16 X10*6/uL (4.20-5.50); White Blood Count 13.8 X10*3/uL (4.8-10.8)
[2025-04-15 13:46] LABS: UACC Culture Trigger YES
[2025-04-15 13:56] LABS: Alanine Aminotransferase 19 U/L (0-31); Albumin Level 4.4 g/dL (3.5-5.0); Alkaline Phosphatase 72 U/L (39-117); Anion Gap 13 (12-20); Aspartate Amino Transferase 28 U/L (5-31); Blood Urea Nitrogen 11 mg/dL (9-16); Calcium 9.3 mg/dL (8.4-10.2); Carbon Dioxide 21 mmol/L (22-29); Chloride 107 mmol/L (96-108); Creatinine Clr Calc Pharmacy 75.7; Estimated Glomerular Filt Rate > 60; Potassium 3.6 mmol/L (3.3-5.1); Sodium 137 mmol/L (135-145); Total Protein 7.4 g/dL (6.5-8.0)
--- OUTSIDE RECORDS SUMMARY | 2025-04-15 16:14 | XMS_ITS | Clinical Summary ---
Author Organization [facility] [email or web address] [facility] Prior to 02/22/2024 Address [address] [place] [address] Care Team Providers Care Distribution Engineer Name Role Phone Delon Rodarte MD Primary Care Provider Allergies No known active allergies Medications Medication Sig Dispensed Refills Start Date End Date Status oxcarbazepine (TRILEPTAL) 600 MG tablet Take 1 Tab by mouth 2 times daily. 60 tablet 0 06/20/2013 Active quetiapine (SEROQUEL) 50 MG tablet Take 1 Tab by mouth 2 times daily. 60 Tab 0 06/20/2013 Active hydrOXYzine (VISTARIL) 25 MG capsule Take 1 Cap by mouth at bedtime as needed for Itching. 30 Cap 0 06/20/2013 Active clonazepam (KLONOPIN) 0.125 MG disintegrating tablet Take 1 Tab by mouth at bedtime as needed for Anxiety. 30 Tab 0 06/20/2013 Active methocarbamol (ROBAXIN-750) 750 MG tablet Take 1 Tab by mouth 3 times daily. 30 Tab 0 08/08/2013 Active ibuprofen (ADVIL,MOTRIN) 800 MG tablet Take 1 Tab by mouth 3 times daily. 60 tablet 1 08/08/2013 Active Zolpidem Tartrate 10 MG Tab Take by mouth at bedtime as needed. 0 Active divalproex (DEPAKOTE) 500 MG EC tablet Take 500 mg by mouth 2 times daily. 0 Active clonidine (CATAPRES) 0.2 MG tablet Take 0.2 mg by mouth daily. 0 Active clonazepam (KLONOPIN) 1 MG tablet Take 1 mg by mouth 2 times daily as needed. 0 Active Active Problems Problem Noted Date Tobacco use 08/11/2014 Tattoo of skin 08/01/2013 Anxiety disorder 06/20/2013 Insomnia 06/20/2013 Bipolar disorder 06/20/2013 Immunizations Name Administration Dates Next Due Tdap 08/01/2013 Family History Medical History Relation Name Comments CA Breast Other 2 CA Ovarian Other 3 Uterine Cancer Other 4 CA Colon Other 5 Relation Name Status Comments Father Alive dm, htn, Mother killed Other 1 Other 2 Other 3 Other 4 Other 5 Social History Tobacco Use Types Packs/Day Years Used Date Smoking Tobacco: Every Day Cigarettes 1 Tobacco Cessation:Ready to Q uit: No; Counseling Given: Yes Alcohol Use Standard Drinks/Week Comments No 0 (1 standard drink = 0.6 oz pur e alcohol) Sex Assigned at Date Recorded Not on file Last Filed Vital Signs Vital Sign Reading Time Taken Comments Blood Pressure 100/62 09/04/2014 8:54 AM EDT Pulse 60 09/04/2014 8:54 AM EDT Temperature 36.7 C (98 F) 08/08/2013 4:08 PM EDT Respiratory Rate 12 09/04/2014 8:54 AM EDT Oxygen Saturation - - Inhaled Oxygen Concentration - - Weight 78.9 kg (174 lb) 09/04/2014 8:54 AM EDT Height 154.9 cm (5' 1 ) 09/04/2014 8:54 AM EDT Body Mass Index 32.88 09/04/2014 8:54 AM EDT Plan of Treatment Health Maintenance Due Date Last Done Comments Covid-19 Vaccine (#1) 01/28/1974 TOBACCO CHECK/ADVISE 07/30/1991 BASELINE HEALTH EXAM 40-64 08/02/2015 08/01/2013, MAMMOGRAM 09/19/2015 09/18/2014 CERVICAL CANCER SCREENING 08/11/2017 08/11/2014 CHOLESTEROL SCREENING 08/01/2018 08/01/2013 COLON CANCER SCREENING 07/30/2023 SHINGLES VACCINE (1 of 2) 07/30/2023 DTAP/TDAP/TD (2 - Td or Tdap) 08/02/2023 08/01/2013 BMI CHECK/ADVISE 04/23/2024 08/11/2014, 08/01/2013 INFLUENZA (#1) 2024 PNEUMOCOCCAL VACCINE FOR HIG H RISK PATIENTS (#1) 2038 Care Teams Distribution Engineer Relationship Specialty Start Date End Date Delon Rodarte MD [address] [place] [id number] PCP - General Internal Medicine 11/23/23
--- OUTSIDE RECORDS SUMMARY | 2025-04-15 16:14 | XMS_ITS | Encounter Summary ---
Author Organization [facility] Prior to 02/22/2024 Address [address] [place] [address] Care Team Providers Care Sky Diver Name Role Phone Blayne Arias MD Primary Care Provider James Lou, Pcp Primary Care Provider Miquel Hidalgo MD Primary Care Provider [phone] Delon Rodarte MD Primary Care Provider Encounter Details Date Type Department Care Team Description 07/18/2013 Release of Information Medical Records [address] [place] [id number] Abstract, Provider Social History Tobacco Use Types Packs/Day Years Used Date Smoking Tobacco: Every Day Cigarettes 1 Alcohol Use Standard Drinks/Week Comments No 0 (1 standard drink = 0.6 oz pur e alcohol) Sex Assigned at Date Recorded Not on file documented as of this encounter Plan of Treatment Not on file documented as of this encounter Visit Diagnoses Not on filedocumented in this encounter Care Teams Sky Diver Relationship Specialty Start Date End Date Blayne Arias MD PCP - General Internal Medicine 05/27/13 08/19/17 [facility], Pcp PCP - General Internal Medicine 08/20/17 11/19/23 Miquel Freed MD [address] [place] [id number] PCP - General Internal Medicine 11/20/23 11/22/23 Delon Rodarte MD [address] [place] [id number] PCP - General Internal Medicine 11/23/23 documented as of this encounter
[2025-04-15 16:40] VITALS: BP 116/66; PULSE 78; RESP 16; TEMP 37.2; O2SAT 98
== END 2025-04-15 16:42 | disposition home or self-care (01) ==
PROVIDERS: Registered Nurse Emergency; Emergency Provider Emergency Medicine
DX: N39.0 Urinary tract infection, site not specified (principal); Z79.899 Other long term (current) drug therapy
CPT/HCPCS: 36415; 80053; 81001; 85025; 87086; 87088; 87186; 99283; J1885